=== PATIENT | female | born 1975 | race African-American/Black ===

== ENCOUNTER 2020-04-11 12:43 | Inpatient (IN) | payer MEDICAID ==
[~2020-04-11] VITALS: Ht 160 cm; Wt 63.8 kg
[~2020-04-11 12:43] MED LIST: AMLO-250 PO; CITA20TA12 PO; CLN.1T PO; FERR-84 PO; LEVO1TAB68 PO; LISI40TA9 PO; OMEP40CA27 PO; OMG1KC PO; ONDA8TAB9 PO; SUCR1TAB36 PO
[2020-04-11] MEDS ORDERED: LABETALOL HCL 20 MG/4 ML VIAL ONE (13:05)
--- NOTE | 2020-04-11 13:09 | ED General ---
General Stated Complaint: L ARM NUMBNESS Source of Information: Patient History of Present Illness Date Seen by Provider: Apr 11, 2020 Time Seen by Provider: 12:55 Initial Comments PT ARRIVES VIA POV FROM HOME C/O LEFT ARM NUMBNESS SINCE 0900 THIS AM STATES IT IS BETTER, BUT "FEELS A LITTLE FUNNY-LIKE YOU KNOW SOMETHING'S NOT RIGHT" NO PAIN IN ARM AND NO PROBLEMS USING ARM NO CHEST PAIN NO PALPITATIONS NO SHORTNESS OF BREATH NO SWEATS NO HEADACHE NO VISION CHANGES WAS SLIGHTLY DIZZY EARLIER, NOT NOW NO FEVER OR RECENT ILLNESS NO HISTORY OF SIMILAR PT LATER STATES THAT SHE DID TAKE 2 ( TWO) 325 MG ASPIRIN TODAY PT HAS HISTORY OF HTN, QUIT TAKING MEDIATIONS YEARS AGO, AND HAS NOT SEEN A DR IN YEARS--STATES SHE LOST HER INSURANCE PT SMOKES 1/2 PPD, AND OCCASIONALLY DRINKS ALCOHOL. --HAD 1 BEER LAST NIGHT LMP: 3 MONTHS AGO, PERIODS ARE SPORADIC.NO CONTROL. NO KNOWN SICK CONTACTS OR EXPOSURE TO COVID-19. NO COVID-19 SYMPTOMS PCP: HAS BEEN TO [facility] AND DR. SERRA. STATES SHE WILL PROBABLY START BACK AT [facility] Allergies and Home Medications Allergies Coded Allergies: lisinopril (Verified Allergy, Unknown, Angioedema, 04/11/20) Home Medications Amlodipine Besylate 5 Mg Tablet, 10 MG PO DAILY Prescribed by: SHAKIRA MISHRA on 06/24/15913 Citalopram Hydrobromide 20 Mg Tablet, 20 MG PO DAILY, (Reported) Clonidine HCl 0.1 Mg Tablet, 0.1 MG PO BID Prescribed by: SHAKIRA MISHRA on 06/24/15913 Ferrous Sulfate 325 Mg Tablet, 325 MG PO HS, (Reported) Levonorgestrel-Ethin Estradiol 1 Each Tablet, 1 TAB PO DAILY, (Reported) Lisinopril 40 Mg Tablet, 40 MG PO DAILY, (Reported) [place] 3 Polyunsat Fatty Acids 1,000 Mg Cap, 1,000 MG PO HS, (Reported) Omeprazole 40 Mg Capsule.dr, 40 MG PO DAILY Prescribed by: SHAKIRA MISHRA on 06/24/15916 Ondansetron 8 Mg Tab.rapdis, 8 MG PO Q6H PRN for NAUSEA Prescribed by: SHAKIRA MISHRA on 06/24/15916 Sucralfate 1 Gm Tablet, 1 GM PO ACHS Prescribed by: SHAKIRA MISHRA on 06/24/15 0917 Patient Home Medication List Home Medication List Reviewed: Yes Review of Systems Review of Systems Constitutional: see HPI; No chills, No diaphoresis; dizziness; No fever, No malaise, No weakness EENTM: no symptoms reported; No blurred vision, No double vision, No eye pain Respiratory: no symptoms reported; No cough, No short of breath, No wheezing Cardiovascular: no symptoms reported; No chest pain, No edema, No palpitations, No syncope, No vascular heart diseas Gastrointestinal: no symptoms reported; No abdominal pain, No diarrhea, No na usea, No vomiting Genitourinary: no symptoms reported Musculoskeletal: no symptoms reported Skin: no symptoms reported Psychiatric/Neurological: See HPI; Denies Headache; Numbness, Paresthesia; Denies Seizure, Denies Tingling, Denies Tremors, Denies Weakness Hematologic/Lymphatic: No Symptoms Reported Immunological/Allergic: no symptoms reported Past Gvwrhvf-Wejjkm-Yjadsa Hx Past Med/Social Hx: Reviewed and Corrections made Patient Social History Alcohol Use: Occasionally Uses Drug of Choice: DENIES Smoking Status: Current Everyday Smoker (1/2 PPD) Type Used: Cigarettes Past Medical History Surgeries: Yes ( X 4) Section Respiratory: No Currently Using CPAP: No Cardiac: Yes (QUIT TAKING MEDICATIONS YEARS AGO, PER PT 04/11/20) Hypertension Neurological: No Reproductive Disorders: No (PERIMENOPAUSAL) Female Reproductive Disorders: Denies Genitourinary: No Gastrointestinal: No Musculoskeletal: No Endocrine: No HEENT: No Cancer: No Psychosocial: Yes (DOES NOT TAKE ANY MEDICATIONS) Anxiety, Depression Integumentary: No Blood Disorders: No Physical Exam Vital Signs Vital Signs - First Documented 04/11/20 12:48 Temp 35.2 Pulse 89 Resp 20 B/P (MAP) 244/144 (177) Pulse Ox 100 O2 Delivery Room Air Capillary Refill : Height, Weight, BMI Height: 5'3.00" Weight: 142lbs. 9.0oz. 64.222821bm; 25.2 BMI Method:Stated General Appearance: No Apparent Distress, WD/WN HEENT: PERRL/EOMI, TMs Normal, Normal ENT Inspection, Pharynx Normal Neck: Full Range of Motion, Normal Inspection, Non Tender, Supple; No Carotid Bruit, No JVD Respiratory: Normal Breath Sounds, No Accessory Muscle Use, No Respiratory Distress Cardiovascular: Regular Rate, Rhythm, No Edema, No JVD, No Murmur, Normal Peripheral Pulses Gastrointestinal: No Organomegaly, Non Tender, Soft Back: No CVA Tenderness Extremity: Normal Capillary Refill, Normal Inspection, Normal Range of Motion, Non Tender, No Calf Tenderness, No Pedal Edema Neurologic/Psychiatric: Alert, Oriented x3, No Motor/Sensory Deficits, Normal Mood/Affect, 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 Norm as Tested; No Aphasia, No EOM Palsy, No Facial Droop, No Motor Weakness, No Sensory Deficit Skin: Normal Color (PT IS BLACK), Warm/Dry Progress/Results/Core Measures Suspected Sepsis SIRS Temperature: Pulse: Respiratory Rate: Laboratory Tests 04/11/20 12:57: White Blood Count 8.7 Blood Pressure / Mean: Laboratory Tests 04/11/20 12:57: Creatinine 1.37H, INR Comment 1.1, Platelet Count 320, Total Bilirubin 0.3 Results/Orders Lab Results Laboratory Tests Test 04/11/20 12:57 04/11/20 14:42 Range/Units White Blood Count 8.7 4.3-11.0 10^3/uL Red Blood Count 4.60 3.80-5.11 10^6/uL Hemoglobin 13.1 11.5-16.0 g/dL Hematocrit 40 35-52 % Mean Corpuscular Volume 87 80-99 fL Mean Corpuscular Hemoglobin 29 25-34 pg Mean Corpuscular Hemoglobin Concent 33 32-36 g/dL Red Cell Distribution Width 13.5 10.0-14.5 % Platelet Count 320 130-400 10^3/uL Mean Platelet Volume 10.8 9.0-12.2 fL Immature Granulocyte % (Auto) 0 % Neutrophils (%) (Auto) 72 42-75 % Lymphocytes (%) (Auto) 23 12-44 % Monocytes (%) (Auto) 5 0-12 % Eosinophils (%) (Auto) 0 0-10 % Basophils (%) (Auto) 0 0-10 % Neutrophils # (Auto) 6.3 1.8-7.8 10^3/uL Lymphocytes # (Auto) 2.0 1.0-4.0 10^3/uL Monocytes # (Auto) 0.4 0.0-1.0 10^3/uL Eosinophils # (Auto) 0.0 0.0-0.3 10^3/uL Basophils # (Auto) 0.0 0.0-0.1 10^3/uL Immature Granulocyte # (Auto) 0.0 0.0-0.1 10^3/uL Prothrombin Time 15.0 H 12.2-14.7 SEC INR Comment 1.1 0.8-1.4 Activated Partial Thromboplast Time 28 24-35 SEC D-Dimer 0.49 0.00-0.49 UG/ML Sodium Level 137 135-145 MMOL/L Potassium Level 3.6 3.6-5.0 MMOL/L Chloride Level 103 98-107 MMOL/L Carbon Dioxide Level 22 21-32 MMOL/L Anion Gap 12 5-14 MMOL/L Blood Urea Nitrogen 12 7-18 MG/DL Creatinine 1.37 H 0.60-1.30 MG/DL Estimat Glomerular Filtration Rate 51 BUN/Creatinine Ratio 9 Glucose Level 96 70-105 MG/DL Calcium Level 9.7 8.5-10.1 MG/DL Corrected Calcium 9.5 8.5-10.1 MG/DL Magnesium Level 2.0 1.6-2.4 MG/DL Total Bilirubin 0.3 0.1-1.0 MG/DL Aspartate Amino Transf (AST/SGOT) 19 5-34 U/L Alanine Aminotransferase (ALT/SGPT) 14 0-55 U/L Alkaline Phosphatase 90 40-136 U/L Total Creatine Kinase 115 29-168 U/L Creatine Kinase MB 1.2 <6.6 NG/ML Myoglobin 43.9 10.0-92.0 NG/ML Troponin I 0.032 H <0.028 NG/ML B-Type Natriuretic Peptide 179.6 H <100.0 PG/ML Total Protein 8.6 H 6.4-8.2 GM/DL Albumin 4.3 3.2-4.5 GM/DL TSH [place] Testing 1.50 0.35-4.94 UIU/ML Serum Test, Qualitative NEGATIVE NEGATIVE Serum Alcohol < 10 <10 MG/DL Urine Color YELLOW Urine Clarity CLEAR Urine pH 6.0 5-9 Urine Specific [place] <=1.005 1.016-1.022 Urine Protein NEGATIVE NEGATIVE Urine Glucose (UA) NEGATIVE NEGATIVE Urine Ketones NEGATIVE NEGATIVE Urine Nitrite NEGATIVE NEGATIVE Urine Bilirubin NEGATIVE NEGATIVE Urine Urobilinogen 0.2 < = 1.0 MG/DL Urine Leukocyte Esterase NEGATIVE NEGATIVE Urine RBC (Auto) TRACE-I NEGATIVE Urine RBC RARE /HPF Urine WBC RARE /HPF Urine Squamous Epithelial Cells 5-10 /HPF Urine Crystals NONE /LPF Urine Bacteria FEW H /HPF Urine Casts NONE /LPF Urine Mucus NEGATIVE /LPF Urine Culture Indicated NO Urine Opiates Screen NEGATIVE NEGATIVE Urine Oxycodone Screen NEGATIVE NEGATIVE Urine Methadone Screen NEGATIVE NEGATIVE Urine Propoxyphene Screen NEGATIVE NEGATIVE Urine Barbiturates Screen NEGATIVE NEGATIVE Ur Tricyclic Antidepressants Screen NEGATIVE NEGATIVE Urine Phencyclidine Screen NEGATIVE NEGATIVE Urine Amphetamines Screen NEGATIVE NEGATIVE Urine Methamphetamines Screen NEGATIVE NEGATIVE Urine Benzodiazepines Screen NEGATIVE NEGATIVE Urine Cocaine Screen NEGATIVE NEGATIVE Urine Cannabinoids Screen NEGATIVE NEGATIVE My Orders Orders - JERRY GARVIN DO Ed Iv/Invasive Line Start (04/11/20 13:01) Ekg Tracing (04/11/20 13:01) Monitor-Rhythm Ecg Trace Only (04/11/20 13:01) Alcohol (04/11/20 13:01) BNP (04/11/20 13:01) Cbc With Automated Diff (04/11/20 13:01) Comprehensive Metabolic Panel (04/11/20 13:01) Creatine Kinase (04/11/20 13:01) Creatine Kinase Mb (04/11/20 13:01) Drug Screen Stat (Urine) (04/11/20 13:01) Magnesium (04/11/20 13:01) Protime With Inr (04/11/20 13:01) Partial Thromboplastin Time (04/11/20 13:01) Thyroid Analyzer (04/11/20 13:01) Ua Culture If Indicated (04/11/20 13:01) Myoglobin Serum (04/11/20 13:01) Troponin I (04/11/20 13:01) Fibrin Degradation Products (04/11/20 13:01) Chest 1 View, Ap/Pa Only (04/11/20 13:01) Ed Iv/Invasive Line Start (04/11/20 13:01) Ed Iv/Invasive Line Start (04/11/20 13:01) Vital Signs Stroke Patient Q15M (04/11/20 13:01) Ct Head Wo-R/O Stroke (04/11/20 13:01) Intake & Output 06,14,22 (04/11/20 13:01) Dysphagia Screening Tool (04/11/20 13:01) Hcg,Qualitative Serum (04/11/20 13:03) Labetalol Injection (Normodyne Injection (04/11/20 13:15) Labetalol Injection (Normodyne Injection (04/11/20 13:05) Ct Angio Head/Neck (04/11/20 13:50) Iohexol Injection (Omnipaque 350 Mg/Ml 1 (04/11/20 14:00) Received Contrast (Hold Metformin- Contr (04/11/20 14:00) Sodium Chloride Flush (Catheter Flush Sy (04/11/20 14:00) Ns (Ivpb) (Sodium Chloride 0.9% Ivpb Bag (04/11/20 14:00) Metoprolol Succinate (Xl) Tab (Toprol Xl (04/11/20 14:00) Hydralazine Injection (Apresoline Inject (04/11/20 13:49) Ns (Ivpb) (Sodium C... W/Nicardipine Iv (04/11/20 16:15) Medications Given in ED Current Medications Medications Dose Ordered Sig/Karishma Route Start Time Stop Time Status Last Admin Dose Admin Iohexol 75 ml ONCE ONCE IV 04/11/20 14:00 04/11/20 14:01 DC 04/11/20 14:06 75 ML Labetalol HCl 20 mg ONCE ONCE IV 04/11/20 13:15 04/11/20 13:16 DC 04/11/20 13:11 20 MG Metoprolol Succinate 200 mg ONCE ONCE PO 04/11/20 14:00 04/11/20 14:01 DC 04/11/20 14:28 200 MG Sodium Chloride 10 ml NEEDED PRN IV 04/11/20 14:00 04/11/20 14:06 10 ML Sodium Chloride 100 ml ONCE ONCE IV 04/11/20 14:00 04/11/20 14:01 DC 04/11/20 14:06 80 ML Vital Signs/I&O 04/11/20 04/11/20 12:48 17:20 Temp 35.2 Pulse 89 72 Resp 20 24 B/P (MAP) 244/144 (177) 211/138 Pulse Ox 100 100 O2 Delivery Room Air Room Air Capillary Refill : Progress Note : Progress Note GIVEN LABETALOL 20 MG IV FOR ELEVATED BLOOD PRESSURE--NO IMPROVEMENT GAVE TOPROL XL 200 MG --NO IMPROVEMENT, AND BP UP TO 251/158. NICARDIPINE DRIP INITIATED. PT HAD NO COMPLAINTS DURING ER STAY ECG Initial ECG Impression Date: Apr 11, 2020 Initial ECG Impression Time: 12:57 Initial ECG Rate: 85 Initial ECG Rhythm: Normal Sinus (LVH) Diagnostic Imaging Comments CXR-- CT HEAD--PER RADIOLOGIST REPORT AT 1345 FINDINGS: No hyperdense hemorrhage or space-occupying mass. No hydrocephalus or midline shift. The basilar cisterns are normal. Frances-white matter differentiation is well preserved. The mastoid air cells are clear. Paranasal sinuses are normal. No focal osseous abnormality of the calvarium. IMPRESSION: 1. No acute intracranial process. CT ANGIOGRAM HEAD/NECK--PER RADIOLOGIST VIA PHONE AT 1429 AND VIA FAX AT 1440 radiation dose reduction. INDICATION: Left arm weakness. FINDINGS: Branching pattern of the great vessels is unremarkable. The cervical vertebral arteries are unremarkable. There is mild non stenosing calcified plaque at the left carotid bulb and bifurcation extending into the proximal ICA without significant luminal stenosis. No intimal injury, dissection, occlusion, or hemodynamically significant degree of stenosis. No cervical mass or fluid collection. No acute bony abnormality. CT ANGIO HEAD: The intradural vertebral arteries are patent. 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 There is fullness at the level of the patient's basilar tip without intraluminal or mural thrombus, suspect for developing small aneurysm. It measures an AP thickness of 2.9 mm and in the coronal reconstructions a cephalocaudal height of 3.2 mm. The bilateral SALES RE[employer] segments are unremarkable. The intracranial ICA is patent and nonfocal. The A1 segments and the anterior cerebral arteries are unremarkable. There is an aneurysm of the left proximal M2 segment in axial plane measuring 3.3 cm extending left lateral and in the coronal plane measuring a length of 3.6 cm. No other intracranial aneurysm is found. There is no large vessel occlusion or intraluminal thrombus. No hemodynamically significant degree of stenosis. IMPRESSION: 1. 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 Mild cervical atherosclerosis without hemodynamically significant stenosis. 2. No large vessel occlusion or luminal thrombus. Results discussed with the ER physician. Reviewed: Reviewed by Me, Discussed w/Radiologist Departure Communication (Admissions) 1347--SPOKE WITH DR. GOETZ, HE ADVISES TO PROCEED WITH NEURO WORK UP, AND ORDERS NOTED FOR BLOOD PRESSURE MEDICATIONS. HE WILL SEE PT IN CONSULT. ADMIT TO MEDICINE SERVICE. 1440--CALLED [facility]. WILL CLOUD CT IMAGES AND WILL HAVE NEUROLOGY REVIEW AND WILL CALL BACK 1515--[facility] CALLED, ONLY RECEIVED PART OF IMAGES. CALLED CT AND THEY WILL RE-SEND IMAGES. 1556--[facility] CALLED BACK. THEY HAVE REVIEWED IMAGES, AND ADVISE NO EMERGENT INTERVENTION NEEDED, BUT WILL FOLLOW UP IN OFFICE TO MONITOR. DR. TERESE NGUYEN [phone]. 0479--SPOKE WITH DR. LEVY, HOSPITALIST, ACCEPTS PT FOR ADMIT Impression Primary Impression: Hypertensive emergency Additional Impressions: Elevated troponin Paresthesia of left arm SMALL CEREBRAL ANEURYSM Renal insufficiency Non-compliance Disposition: ADMITTED INPATIENT Condition: Stable Admissions Decision to Admit Reason: Admit from ER (General) Decision to Admit/Date: Apr 11, 2020 Time/Decision to Admit Time: 16:05 Departure-Patient Inst. Referrals: NO,LOCAL PHYSICIAN (PCP/Family) Primary Care Physician JERRY GARVIN DO Apr 11, 2020 13:09
[2020-04-11 13:13] LABS: BASOPHILS % (AUTO) 0 % (0-10); EOSINOPHILS % (AUTO) 0 % (0-10); HEMATOCRIT 40 % (35-52); HEMOGLOBIN 13.1 g/dL (11.5-16.0); LYMPHOCYTES % (AUTO) 23 % (12-44); MEAN CORPUSCULAR HEMOGLOBIN 29 pg (25-34); MEAN CORPUSCULAR HGB CONC 33 g/dL (32-36); MEAN CORPUSCULAR VOLUME 87 fL (80-99); MEAN PLATELET VOLUME 10.8 fL (9.0-12.2); MONOCYTES # (AUTO) 0.4 10^3/uL (0.0-1.0); MONOCYTES % (AUTO) 5 % (0-12); NEUTROPHILS # (AUTO) 6.3 10^3/uL (1.8-7.8); NEUTROPHILS % (AUTO) 72 % (42-75); PLATELET COUNT 320 10^3/uL (130-400); WHITE BLOOD COUNT 8.7 10^3/uL (4.3-11.0)
[2020-04-11] MEDS ORDERED: LABETALOL HCL 20 MG/4 ML VIAL IV ONE (13:15)
[2020-04-11 13:23] LABS: FIBRIN DEGRADATION PRODUCTS 0.49 UG/ML (0.00-0.49); INR 1.1 (0.8-1.4)
[2020-04-11 13:25] LABS: ALBUMIN 4.3 GM/DL (3.2-4.5); CHLORIDE 103 MMOL/L (98-107); POTASSIUM 3.6 MMOL/L (3.6-5.0); SODIUM 137 MMOL/L (135-145)
[2020-04-11 13:27] LABS: CALCIUM 9.7 MG/DL (8.5-10.1)
[2020-04-11 13:28] LABS: GLUCOSE 96 MG/DL (70-105); TOTAL PROTEIN 8.6 GM/DL (6.4-8.2)
[2020-04-11 13:29] LABS: CARBON DIOXIDE 22 MMOL/L (21-32)
[2020-04-11 13:30] LABS: BILIRUBIN,TOTAL 0.3 MG/DL (0.1-1.0)
[2020-04-11 13:31] LABS: ALKALINE PHOSPHATASE 90 U/L (40-136); CREATININE SERUM 1.37 MG/DL (0.60-1.30); GFR ESTIMATED 51
[2020-04-11 13:32] LABS: BUN/CREATININE RATIO 9
[2020-04-11 13:34] LABS: ALANINE AMINOTRANSFERASE 14 U/L (0-55)
[2020-04-11 13:35] LABS: CREATINE KINASE 115 U/L (29-168)
--- NOTE | 2020-04-11 13:41 | Diagnostic Imaging Report ---
PROCEDURE: CT head wo r/o stroke. TECHNIQUE: Multiple contiguous axial images were obtained through the brain without the use of intravenous contrast. Auto Exposure Controls were utilized during the CT exam to meet ALARA standards for radiation dose reduction. INDICATION: Left arm weakness. COMPARISON: None available. FINDINGS: No hyperdense hemorrhage or space-occupying mass. No hydrocephalus or midline shift. The basilar cisterns are normal. Frances-white matter differentiation is well preserved. The mastoid air cells are clear. Paranasal sinuses are normal. No focal osseous abnormality of the calvarium. IMPRESSION: 1. No acute intracranial process. Dictated by: Dictated on workstation # [id number]
[2020-04-11 13:43] LABS: CREATINE KINASE MB 1.2 NG/ML (<6.6)
--- NOTE | 2020-04-11 13:47 | Diagnostic Imaging Report ---
INDICATION: Left arm paresthesia Portable chest 1:34 PM Heart size and pulmonary vascularity are normal. Lungs are clear. There are no effusions or pneumothoraces. IMPRESSION: Negative chest Dictated by: Dictated on workstation # [id number]
[2020-04-11] MEDS ORDERED: hydrALAZINE (APESOLINE) 20 MG/ML VIAL ONE (13:49)
[2020-04-11] MEDS ORDERED: CATHETER FLUSH 10 ML SYR IV PRN (14:00)
[2020-04-11] MEDS ORDERED: IOHEXOL 350 MG/ML 100 ML (OMNIPAQUE 350) VIAL IV ONE (14:00)
[2020-04-11] MEDS ORDERED: meTOprolol SUCCINATE 100 MG (TOPROL XL) TAB PO ONE (14:00)
[2020-04-11] MEDS ORDERED: HOLD METFORMIN - RECEIVED CONTRAST 20 ML VIAL IV SCH (14:00)
[2020-04-11] MEDS ORDERED: NS 100 ML (IVPB) BAG IV ONE (14:00)
--- NOTE | 2020-04-11 14:08 | Consultation-Cardiology ---
HPI-Cardiology Cardiology Consultation: Date of Consultation 04/11/20 Date of Admission Attending Physician Admitting Physician Briana,Local Physician Consulting Physician Mike Marquis MD HPI: Chief Complaint: Uncontrolled hypertension AIK-Ffqped-Zilnaf Hx Patient Social History Smoking Status: Current Everyday Smoker (1/2 PPD) Immunizations Up To Date Tetanus Booster (TDap): Unknown Past Medical History PMH As described under Assessment. Allergies and Home Medications Allergies Coded Allergies: lisinopril (Verified Allergy, Unknown, Angioedema, 04/11/20) Home Medications Amlodipine Besylate 5 Mg Tablet, 10 MG PO DAILY Prescribed by: SHAKIRA MISHRA on 06/24/15913 Citalopram Hydrobromide 20 Mg Tablet, 20 MG PO DAILY, (Reported) Clonidine HCl 0.1 Mg Tablet, 0.1 MG PO BID Prescribed by: SHAKIRA MISHRA on 06/24/15913 Ferrous Sulfate 325 Mg Tablet, 325 MG PO HS, (Reported) Levonorgestrel-Ethin Estradiol 1 Each Tablet, 1 TAB PO DAILY, (Reported) Lisinopril 40 Mg Tablet, 40 MG PO DAILY, (Reported) [place] 3 Polyunsat Fatty Acids 1,000 Mg Cap, 1,000 MG PO HS, (Reported) Omeprazole 40 Mg Capsule.dr, 40 MG PO DAILY Prescribed by: SHAKIRA MISHRA on 06/24/15916 Ondansetron 8 Mg Tab.rapdis, 8 MG PO Q6H PRN for NAUSEA Prescribed by: SHAKIRA MISHRA on 06/24/15916 Sucralfate 1 Gm Tablet, 1 GM PO ACHS Prescribed by: SHAKIRA MISHRA on 06/24/15916 Physical Exam-Cardiology Physical Exam Vital Signs/I&O 04/11/20 12:48 Temp 35.2 Pulse 89 Resp 20 B/P (MAP) 244/144 (177) Pulse Ox 100 O2 Delivery Room Air Capillary Refill : Less Than 3 Seconds Data Review Labs Laboratory Tests 04/11/20 12:57: White Blood Count 8.7, Red Blood Count 4.60, Hemoglobin 13.1, Hematocrit 40, Mean Corpuscular Volume 87, Mean Corpuscular Hemoglobin 29, Mean Corpuscular Hemoglobin Concent 33, Red Cell Distribution Width 13.5, Platelet Count 320, Mean Platelet Volume 10.8, Immature Granulocyte % (Auto) 0, Neutrophils (%) (Auto) 72, Lymphocytes (%) (Auto) 23, Monocytes (%) (Auto) 5, Eosinophils (%) (Auto) 0, Basophils (%) (Auto) 0, Neutrophils # (Auto) 6.3, Lymphocytes # (Auto) 2.0, Monocytes # (Auto) 0.4, Eosinophils # (Auto) 0.0, Basophils # (Auto) 0.0, Immature Granulocyte # (Auto) 0.0, Prothrombin Time 15.0H, INR Comment 1.1, Activated Partial Thromboplast Time 28, D-Dimer 0.49, Sodium Level 137, Potassium Level 3.6, Chloride Level 103, Carbon Dioxide Level 22, Anion Gap 12, Blood Urea Nitrogen 12, Creatinine 1.37H, Estimat Glomerular Filtration Rate 51, BUN/Creatinine Ratio 9, Glucose Level 96, Calcium Level 9.7, Corrected Calcium 9.5, Magnesium Level 2.0, Total Bilirubin 0.3, Aspartate Amino Transf (AST/SGOT) 19, Alanine Aminotransferase (ALT/SGPT) 14, Alkaline Phosphatase 90, Total Creatine Kinase 115, Creatine Kinase MB 1.2, Myoglobin 43.9, Troponin I 0.032H, B-Type Natriuretic Peptide 179.6H, Total Protein 8.6H, Albumin 4.3, TSH [place] Testing 1.50, Serum Test, Qualitative NEGATIVE, Serum Alcohol < 10 04/11/20 14:42: Urine Color YELLOW, Urine Clarity CLEAR, Urine pH 6.0, Urine Specific [place] <=1.005, Urine Protein NEGATIVE, Urine Glucose (UA) NEGATIVE, Urine Ketones NEGATIVE, Urine Nitrite NEGATIVE, Urine Bilirubin NEGATIVE, Urine Urobilinogen 0.2, Urine Leukocyte Esterase NEGATIVE, Urine RBC (Auto) TRACE-I, Urine RBC RARE, Urine WBC RARE, Urine Squamous Epithelial Cells 5-10, Urine Crystals NONE, Urine Bacteria FEWH, Urine Casts NONE, Urine Mucus NEGATIVE, Urine Culture Indicated NO, Urine Opiates Screen NEGATIVE, Urine Oxycodone Screen NEGATIVE, Urine Methadone Screen NEGATIVE, Urine Propoxyphene Screen NEGATIVE, Urine Barbiturates Screen NEGATIVE, Ur Tricyclic Antidepressants Screen NEGATIVE, Urine Phencyclidine Screen NEGATIVE, Urine Amphetamines Screen NEGATIVE, Urine Methamphetamines Screen NEGATIVE, Urine Benzodiazepines Screen NEGATIVE, Urine Cocaine Screen NEGATIVE, Urine Cannabinoids Screen NEGATIVE Radiology NAME: MIHAI PETER MED REC#: [id number] PT STATUS: REG ER : 1975 PHYSICIAN: JERRY GARVIN DO ADMIT DATE: 04/11/20/ER Draft Date of Exam:04/11/20 CHEST 1 VIEW, AP/PA ONLY INDICATION: Left arm paresthesia Portable chest 1:34 PM Heart size and pulmonary vascularity are normal. Lungs are clear. There are no effusions or pneumothoraces. IMPRESSION: Negative chest Dictated on workstation # [id number] Dict: 04/11/20 1346 Trans: 04/11/20 1347 CVB [id number] Interpreted by: LETICIA ESPARZA MD Electronically signed by: NAME: MIHIA PETER [facility] REC#: [id number] PT STATUS: REG ER : 1975 PHYSICIAN: JERRY GARVIN DO ADMIT DATE: 04/11/20/ER Signed Date of Exam:04/11/20 CT HEAD WO-R/O STROKE PROCEDURE: CT head wo r/o stroke. TECHNIQUE: Multiple contiguous axial images were obtained through the brain without the use of intravenous contrast. Auto Exposure Controls were utilized during the CT exam to meet ALARA standards for radiation dose reduction. INDICATION: Left arm weakness. COMPARISON: None available. FINDINGS: No hyperdense hemorrhage or space-occupying mass. No hydrocephalus or midline shift. The basilar cisterns are normal. Frances-white matter differentiation is well preserved. The mastoid air cells are clear. Paranasal sinuses are normal. No focal osseous abnormality of the calvarium. IMPRESSION: 1. No acute intracranial process. Dictated by: Dictated on workstation # [id number] Dict: 04/11/20 1338 Trans: 04/11/20 1339 [facility] [id number] Interpreted by: FLORENTIN ROMERO MD Electronically signed by: FLORENTIN ROMERO MD 04/11/20 1339 A/P-Cardiology Assessment/Admission Diagnosis Left arm discomfort of undetermined etiology Uncontrolled hypertension Minimally elevated troponin likely Type 2 ME secondary to uncontrolled hypertension Echocardiogram of [address] Moreira: Severe left ventricular hypertrophy noted diffusely with normal systolic function. Estimated ejection fraction 60%. Diastolic dysfunction is suggested by Doppler. Mild mitral regurgitation. Mild tricuspid regurgitation. Estimated pulmonary artery pressure of 30 mmHg. FAUSTO RICHARDSON Apr 11, 2020 14:08
--- NOTE | 2020-04-11 14:37 | Diagnostic Imaging Report ---
PROCEDURE: CT angiography of the head and CT angiography of the neck with and without contrast. TECHNIQUE: Contiguous noncontrast images were obtained from the skull base through the vertex. After intravenous contrast administration, helical CT angiography of the neck was performed. Source data was reformatted into 3D MIP projections. Delayed post contrast acquisition was also obtained. Auto Exposure Controls were utilized during the CT exam to meet ALARA standards for radiation dose reduction. INDICATION: Left arm weakness. FINDINGS: Branching pattern of the great vessels is unremarkable. The cervical vertebral arteries are unremarkable. There is mild non stenosing calcified plaque at the left carotid bulb and bifurcation extending into the proximal ICA without significant luminal stenosis. No intimal injury, dissection, occlusion, or hemodynamically significant degree of stenosis. No cervical mass or fluid collection. No acute bony abnormality. CT ANGIO HEAD: The intradural vertebral arteries are patent. 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 There is fullness at the level of the patient's basilar tip without intraluminal or mural thrombus, suspect for developing small aneurysm. It measures an AP thickness of 2.9 mm and in the coronal reconstructions a cephalocaudal height of 3.2 mm. The bilateral ALLOPATHIC DOCTOR segments are unremarkable. The intracranial ICA is patent and nonfocal. The A1 segments and the anterior cerebral arteries are unremarkable. There is an aneurysm of the left proximal M2 segment in axial plane measuring 3.3 cm extending left lateral and in the coronal plane measuring a length of 3.6 cm. No other intracranial aneurysm is found. There is no large vessel occlusion or intraluminal thrombus. No hemodynamically significant degree of stenosis. IMPRESSION: 1. 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 Mild cervical atherosclerosis without hemodynamically significant stenosis. 2. No large vessel occlusion or luminal thrombus. Results discussed with the ER physician. Dictated by: Dictated on workstation # [id number]
[2020-04-11 14:58] LABS: BILIRUBIN,URINE NEGATIVE (NEGATIVE); CLARITY,URINE CLEAR; COLOR,URINE YELLOW; GLUCOSE, URINE (UA) NEGATIVE (NEGATIVE); KETONES,URINE NEGATIVE (NEGATIVE); LEUKOCYTE ESTERASE ,URINE NEGATIVE (NEGATIVE); NITRITE,URINE NEGATIVE (NEGATIVE); PROTEIN,URINE NEGATIVE (NEGATIVE)
[2020-04-11 15:02] LABS: AMPHETAMINE SCREEN, URINE NEGATIVE (NEGATIVE); BARBITURATE SCREEN URINE NEGATIVE (NEGATIVE); BENZODIAZEPINES SCREEN URINE NEGATIVE (NEGATIVE); CANNABINOID SCREEN, URINE NEGATIVE (NEGATIVE); COCAINE SCREEN URINE NEGATIVE (NEGATIVE); METHADONE STAT NEGATIVE (NEGATIVE); METHAMPHETAMINE SCREEN URINE S NEGATIVE (NEGATIVE); OPIATE SCREEN URINE NEGATIVE (NEGATIVE); OXYCODONE STAT NEGATIVE (NEGATIVE); PROPOXYPHENE STAT NEGATIVE (NEGATIVE); TRICYCLIC ANTIDEPRESSANTS SCRE NEGATIVE (NEGATIVE)
[2020-04-11 15:07] LABS: BACTERIA,URINE FEW /HPF; RBC,URINE RARE /HPF; WBC,URINE RARE /HPF
[2020-04-11] MEDS ORDERED: niCARdipine IV 50 MG in NS (IVPB) 230 ML IV SCH (16:15)
--- NOTE | 2020-04-11 17:59 | Consultation-Cardiology ---
HPI-Cardiology Cardiology Consultation: Date of Consultation 04/11/20 Time Seen by a Provider: 17:40 Date of Admission Attending Physician Holli Hollins MD Admitting Physician No,Local Physician Consulting Physician SEVERINO GOETZ MD, MA, FACP, FACC, FSCAI, CCDS Physician requesting consult: Dr Hollins (attending); Dr Gleason (ER physician) HPI: Chief Complaint: CC: Transient L arm weakness HPI 45 yo woman with known, severe hypertension who has not been taking her meds. She has been admitted to Dr Hollins with transient L arm weakness. She states that has resolved at the time of my exam. She does not report any cp or palp or syncope or shortness of breath or swelling. Review of Systems-Cardiology Review of Systems Constitutional: malaise, tiredness; No weight loss, No weight gain Eyes: No vision change Ears/Nose/Throat: No ear discharge, No nasal drainage, No recent hearing loss Respiratory: As described under HPI Cardiovascular: As described under HPI Gastrointestinal: No diarrhea, No nausea, No rectal bleeding Genitourinary: No dysuria, No hematuria, No urine frequency changes Musculoskeletal: No back pain, No joint pain Skin: No rash, No ulcerations Psychiatric/Neurological: As described under HPI Hematologic: No bleeding abnormalities AMI-Shfnwm-Qcjiyp Hx Patient Social History Smoking Status: Current Everyday Smoker (1/2 PPD) Immunizations Up To Date Tetanus Booster (TDap): Unknown Past Medical History PMH As described under Assessment. Family Medical History Family Medical History: Mother had severe hypertension and from its complications, according to the patient Patient does not report fam h/o early CAD or SCD Allergies and Home Medications Allergies Coded Allergies: lisinopril (Verified Allergy, Unknown, Angioedema, 04/11/20) Home Medications Amlodipine Besylate 5 Mg Tablet, 10 MG PO DAILY Prescribed by: SHAKIRA MISHRA on 06/24/15913 Citalopram Hydrobromide 20 Mg Tablet, 20 MG PO DAILY, (Reported) Clonidine HCl 0.1 Mg Tablet, 0.1 MG PO BID Prescribed by: SHAKIRA MISHRA on 06/24/15913 Ferrous Sulfate 325 Mg Tablet, 325 MG PO HS, (Reported) Levonorgestrel-Ethin Estradiol 1 Each Tablet, 1 TAB PO DAILY, (Reported) Lisinopril 40 Mg Tablet, 40 MG PO DAILY, (Reported) [place] 3 Polyunsat Fatty Acids 1,000 Mg Cap, 1,000 MG PO HS, (Reported) Omeprazole 40 Mg Capsule.dr, 40 MG PO DAILY Prescribed by: SHAKIRA MISHRA on 06/24/15916 Ondansetron 8 Mg Tab.rapdis, 8 MG PO Q6H PRN for NAUSEA Prescribed by: SHAKIRA MISHRA on 06/24/15916 Sucralfate 1 Gm Tablet, 1 GM PO ACHS Prescribed by: SHAKIRA MISHRA on 06/24/15916 Patient Home Medication List Home Medication List Reviewed: Yes Physical Exam-Cardiology Physical Exam Vital Signs/I&O 04/11/20 04/11/20 12:48 17:20 Temp 35.2 Pulse 89 72 Resp 20 24 B/P (MAP) 244/144 (177) 211/138 Pulse Ox 100 100 O2 Delivery Room Air Room Air Capillary Refill : Less Than 3 Seconds Constitutional: AAO x 3, well-developed, well-nourished HEENT: EOMI, hearing is well preserved; No xanthelasmas are seen Neck: carotid pulses are 2 + bilaterally, with good upstrokes Respiratory: No accessory muscle use; other (good, bilat air entry) Cardiovascular: regular rate-rhythm, S1 and S2 Gastrointestinal: No tender; soft; No guarding, No rebound; audible bowel sounds Extremities: No clubbing, No cyanosis, No significant edema Neurologic/Psychiatric: oriented x 3, other (moves all her limbs equally) Skin: No rash on exposed areas, No ulcerations on exposed areas Data Review Labs Laboratory Tests 04/11/20 12:57: White Blood Count 8.7, Red Blood Count 4.60, Hemoglobin 13.1, Hematocrit 40, Mean Corpuscular Volume 87, Mean Corpuscular Hemoglobin 29, Mean Corpuscular Hem oglobin Concent 33, Red Cell Distribution Width 13.5, Platelet Count 320, Mean Platelet Volume 10.8, Immature Granulocyte % (Auto) 0, Neutrophils (%) (Auto) 72, Lymphocytes (%) (Auto) 23, Monocytes (%) (Auto) 5, Eosinophils (%) (Auto) 0, Basophils (%) (Auto) 0, Neutrophils # (Auto) 6.3, Lymphocytes # (Auto) 2.0, Monocytes # (Auto) 0.4, Eosinophils # (Auto) 0.0, Basophils # (Auto) 0.0, Immature Granulocyte # (Auto) 0.0, Prothrombin Time 15.0H, INR Comment 1.1, Activated Partial Thromboplast Time 28, D-Dimer 0.49, Sodium Level 137, Potassium Level 3.6, Chloride Level 103, Carbon Dioxide Level 22, Anion Gap 12, Blood Urea Nitrogen 12, Creatinine 1.37H, Estimat Glomerular Filtration Rate 51, BUN/Creatinine Ratio 9, Glucose Level 96, Calcium Level 9.7, Corrected Calcium 9.5, Magnesium Level 2.0, Total Bilirubin 0.3, Aspartate Amino Transf (AST/SGOT) 19, Alanine Aminotransferase (ALT/SGPT) 14, Alkaline Phosphatase 90, Total Creatine Kinase 115, Creatine Kinase MB 1.2, Myoglobin 43.9, Troponin I 0.032H, B-Type Natriuretic Peptide 179.6H, Total Protein 8.6H, Albumin 4.3, TSH [place] Testing 1.50, Serum Test, Qualitative NEGATIVE, Serum Alcohol < 10 04/11/20 14:42: Urine Color YELLOW, Urine Clarity CLEAR, Urine pH 6.0, Urine Specific [place] <=1.005, Urine Protein NEGATIVE, Urine Glucose (UA) NEGATIVE, Urine Ketones NEGATIVE, Urine Nitrite NEGATIVE, Urine Bilirubin NEGATIVE, Urine Urobilinogen 0.2, Urine Leukocyte Esterase NEGATIVE, Urine RBC (Auto) TRACE-I, Urine RBC RARE, Urine WBC RARE, Urine Squamous Epithelial Cells 5-10, Urine Crystals NONE, Urine Bacteria FEWH, Urine Casts NONE, Urine Mucus NEGATIVE, Urine Culture Ind icated NO, Urine Opiates Screen NEGATIVE, Urine Oxycodone Screen NEGATIVE, Urine Methadone Screen NEGATIVE, Urine Propoxyphene Screen NEGATIVE, Urine Barbiturates Screen NEGATIVE, Ur Tricyclic Antidepressants Screen NEGATIVE, Urine Phencyclidine Screen NEGATIVE, Urine Amphetamines Screen NEGATIVE, Urine Methamphetamines Screen NEGATIVE, Urine Benzodiazepines Screen NEGATIVE, Urine Cocaine Screen NEGATIVE, Urine Cannabinoids Screen NEGATIVE Laboratory Tests 04/11/20 12:57 A/P-Cardiology Assessment/Admission Diagnosis 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 Malignant hypertension with SHANAE-1, and ECG and echo evidence of LVH - Echo on 04/11/20: Moderate, concentric LVH; LVEF 50%; Minimally elevated troponin likely Type 2 [place] due to uncontrolled hypertension, mild MR, PASP 25-30 mmHg Chronic smoker of cigarettes Discussion and Recomendations * Transfer to a tertiary care facility for eval and treatment of middle cerebral artery aneurysm resulting in intermittent neurologic deficit. I called patient's attending physician, Dr Hollins, and communicated my opinion to him * Treat hypertension. See orders * I advised pt to be compliant with her bp meds and to quit smoking immediately and completely SEVERINO GOETZ MD FACP FAC CCDS Apr 11, 2020 17:59
--- NOTE | 2020-04-11 18:16 | Consultation-Cardiology ---
HPI-Cardiology Cardiology Consultation: Date of Consultation 04/11/20 Time Seen by a Provider: 17:40 Date of Admission Attending Physician Holli Hollins MD Admitting Physician No,Local Physician Consulting Physician SEVERINO GOETZ MD, MA, FACP, FACC, [facility] [place], CCDS Physician requesting consult: Dr Hollins (attending); Dr Gleason (ER physician) HPI: Chief Complaint: CC: Transient L arm weakness HPI 45 yo woman with known, severe hypertension who has not been taking her meds. She has been admitted to Dr Hollins with transient L arm weakness. She states that has resolved at the time of my exam. She does not report any cp or palp or syncope or shortness of breath or swelling. Review of Systems-Cardiology Review of Systems Constitutional: malaise, tiredness Eyes: No vision change Ears/Nose/Throat: No ear discharge, No nasal drainage, No recent hearing loss Respiratory: As described under HPI Cardiovascular: As described under HPI Gastrointestinal: No diarrhea, No nausea, No rectal bleeding Genitourinary: No dysuria, No hematuria, No urine frequency changes Musculoskeletal: No back pain, No joint pain Skin: No rash, No ulcerations Psychiatric/Neurological: As described under HPI Hematologic: No bleeding abnormalities WDF-Tlghnm-Gnpptc Hx Patient Social History Smoking Status: Current Everyday Smoker (/ PPD) Immunizations Up To Date Tetanus Booster (TDap): Unknown Past Medical History PMH As described under Assessment. Family Medical History Family Medical History: Mother had severe hypertension and from its complications, according to the patient Patient does not report fam h/o early CAD or SCD Allergies and Home Medications Allergies Coded Allergies: lisinopril (Verified Allergy, Unknown, Angioedema, 04/11/20) Home Medications Amlodipine Besylate 5 Mg Tablet, 10 MG PO DAILY Prescribed by: SHAKIRA MISHRA on 06/24/15913 Citalopram Hydrobromide 20 Mg Tablet, 20 MG PO DAILY, (Reported) Clonidine HCl 0.1 Mg Tablet, 0.1 MG PO BID Prescribed by: SHAKIRA MISHRA on 06/24/15913 Ferrous Sulfate 325 Mg Tablet, 325 MG PO HS, (Reported) Levonorgestrel-Ethin Estradiol 1 Each Tablet, 1 TAB PO DAILY, (Reported) Lisinopril 40 Mg Tablet, 40 MG PO DAILY, (Reported) [place] 3 Polyunsat Fatty Acids 1,000 Mg Cap, 1,000 MG PO HS, (Reported) Omeprazole 40 Mg Capsule.dr, 40 MG PO DAILY Prescribed by: SHAKIRA MISHRA on 06/24/15916 Ondansetron 8 Mg Tab.rapdis, 8 MG PO Q6H PRN for NAUSEA Prescribed by: SHAKIRA MISHRA on 06/24/15916 Sucralfate 1 Gm Tablet, 1 GM PO ACHS Prescribed by: SHAKIRA MISHRA on 06/24/15916 Patient Home Medication List Home Medication List Reviewed: Yes Physical Exam-Cardiology Physical Exam Vital Signs/I&O 04/11/20 04/11/20 12:48 17:20 Temp 35.2 Pulse 89 72 Resp 20 24 B/P (MAP) 244/144 (177) 211/138 Pulse Ox 100 100 O2 Delivery Room Air Room Air Capillary Refill : Less Than 3 Seconds Constitutional: AAO x 3, well-developed, well-nourished HEENT: EOMI, hearing is well preserved Neck: carotid pulses are 2 + bilaterally, with good upstrokes Respiratory: other Cardiovascular: regular rate-rhythm, S1 and S2 Gastrointestinal: soft, audible bowel sounds Extremities: No clubbing, No cyanosis, No significant edema Neurologic/Psychiatric: oriented x 3, other Skin: No rash on exposed areas, No ulcerations on exposed areas Data Review Labs Laboratory Tests 04/11/20 12:57: White Blood Count 8.7, Red Blood Count 4.60, Hemoglobin 13.1, Hematocrit 40, Mean Corpuscular Volume 87, Mean Corpuscular Hemoglobin 29, Mean Corpuscular Hemoglobin Concent 33, Red Cell Distribution Width 13.5, Platelet Count 320, Mean Platelet Volume 10.8, Immature Granulocyte % (Auto) 0, Neutrophils (%) (Auto) 72, Lymphocytes (%) (Auto) 23, Monocytes (%) (Auto) 5, Eosinophils (%) (Auto) 0, Basophils (%) (Auto) 0, Neutrophils # (Auto) 6.3, Lymphocytes # (Auto) 2.0, Monocytes # (Auto) 0.4, Eosinophils # (Auto) 0.0, Basophils # (Auto) 0.0, Immature Granulocyte # (Auto) 0.0, Prothrombin Time 15.0H, INR Comment 1.1, Activated Partial Thromboplast Time 28, D-Dimer 0.49, Sodium Level 137, Potassium Level 3.6, Chloride Level 103, Carbon Dioxide Level 22, Anion Gap 12, Blood Urea Nitrogen 12, Creatinine 1.37H, Estimat Glomerular Filtration Rate 51, BUN/Creatinine Ratio 9, Glucose Level 96, Calcium Level 9.7, Corrected Calcium 9.5, Magnesium Level 2.0, Total Bilirubin 0.3, Aspartate Amino Transf (AST/SGOT) 19, Alanine Aminotransferase (ALT/SGPT) 14, Alkaline Phosphatase 90, Total Creatine Kinase 115, Creatine Kinase MB 1.2, Myoglobin 43.9, Troponin I 0.032H, B-Type Natriuretic Peptide 179.6H, Total Protein 8.6H, Albumin 4.3, TSH [place] Testing 1.50, Serum Test, Qualitative NEGATIVE, Serum Alcohol < 10 04/11/20 14:42: Urine Color YELLOW, Urine Clarity CLEAR, Urine pH 6.0, Urine Specific [place] <=1.005, Urine Protein NEGATIVE, Urine Glucose (UA) NEGATIVE, Urine Ketones NEGATIVE, Urine Nitrite NEGATIVE, Urine Bilirubin NEGATIVE, Urine Urobilinogen 0.2, Urine Leukocyte Esterase NEGATIVE, Urine RBC (Auto) TRACE-I, Urine RBC RARE, Urine WBC RARE, Urine Squamous Epithelial Cells 5-10, Urine Crystals NONE, Urine Bacteria FEWH, Urine Casts NONE, Urine Mucus NEGATIVE, Urine Culture Indicated NO, Urine Opiates Screen NEGATIVE, Urine Oxycodone Screen NEGATIVE, Urine Methadone Screen NEGATIVE, Urine Propoxyphene Screen NEGATIVE, Urine Barbiturates Screen NEGATIVE, Ur Tricyclic Antidepressants Screen NEGATIVE, Urine Phencyclidine Screen NEGATIVE, Urine Amphetamines Screen NEGATIVE, Urine Methamphetamines Screen NEGATIVE, Urine Benzodiazepines Screen NEGATIVE, Urine Cocaine Screen NEGATIVE, Urine Cannabinoids Screen NEGATIVE A/P-Cardiology Assessment/Admission Diagnosis 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 Malignant hypertension with SHANAE-1, and ECG and echo evidence of LVH - Echo on 04/11/20: Moderate, concentric LVH; LVEF 50%; mild MR, PASP 25-30 mmHg Minimally elevated troponin, likely Type 2 [place] due to uncontrolled hypertension Chronic smoker of cigarettes Discussion and Recomendations * Transfer to a tertiary care facility for eval and treatment of middle cerebral artery aneurysm resulting in intermittent neurologic deficit. I called patient's attending physician, Dr Hollins, and communicated my opinion to him * Treat hypertension. See orders * I advised pt to be compliant with her bp meds and to quit smoking immediately and completely SEVERINO GOETZ MD FACP [facility] CCDS Apr 11, 2020 18:16
[2020-04-11] MEDS: niCARdipine 50 MG/NS 250 ML IV DRIP IV SCH ×2 (18:36)
[2020-04-12] MEDS: niCARdipine 50 MG/NS 250 ML IV DRIP IV SCH ×4 (00:46→13:23)
[2020-04-12 01:14] LABS: POTASSIUM 3.4 MMOL/L (3.6-5.0)
[2020-04-12 01:15] LABS: CALCIUM 9.7 MG/DL (8.5-10.1)
[2020-04-12 01:19] LABS: CREATININE SERUM 1.27 MG/DL (0.60-1.30); PHOSPHORUS 3.2 MG/DL (2.3-4.7)
[2020-04-12 01:54] LABS: BASOPHILS % (AUTO) 0 % (0-10); EOSINOPHILS % (AUTO) 0 % (0-10); HEMATOCRIT 38 % (35-52); HEMOGLOBIN 12.8 g/dL (11.5-16.0); LYMPHOCYTES % (AUTO) 35 % (12-44); MEAN CORPUSCULAR HEMOGLOBIN 29 pg (25-34); MEAN CORPUSCULAR HGB CONC 34 g/dL (32-36); MEAN CORPUSCULAR VOLUME 86 fL (80-99); MEAN PLATELET VOLUME 11.1 fL (9.0-12.2); MONOCYTES # (AUTO) 0.6 10^3/uL (0.0-1.0); MONOCYTES % (AUTO) 7 % (0-12); NEUTROPHILS # (AUTO) 4.8 10^3/uL (1.8-7.8); NEUTROPHILS % (AUTO) 58 % (42-75); PLATELET COUNT 322 10^3/uL (130-400); WHITE BLOOD COUNT 8.4 10^3/uL (4.3-11.0)
[2020-04-12] MEDS: MAGNESIUM 1 GM/100 ML IVPB 100 ML IV SCH (02:05)
[2020-04-12] MEDS: KCL 20 MEQ TAB (K-DUR) PO SCH (02:05)
--- NOTE | 2020-04-12 04:51 | Pulmonary Consultation ---
History of Present Illness History of Present Illness Date Seen by Provider: Apr 12, 2020 Time Seen by Provider: 04:46 Date of Admission Allergies and Home Medications Allergies Coded Allergies: lisinopril (Verified Allergy, Unknown, Angioedema, 04/11/20) Home Medications Amlodipine Besylate 5 Mg Tablet, 10 MG PO DAILY Prescribed by: SHAKIRA MISHRA on 06/24/15913 Citalopram Hydrobromide 20 Mg Tablet, 20 MG PO DAILY, (Reported) Clonidine HCl 0.1 Mg Tablet, 0.1 MG PO BID Prescribed by: SHAKIRA MISHRA on 06/24/15913 Ferrous Sulfate 325 Mg Tablet, 325 MG PO HS, (Reported) Levonorgestrel-Ethin Estradiol 1 Each Tablet, 1 TAB PO DAILY, (Reported) Lisinopril 40 Mg Tablet, 40 MG PO DAILY, (Reported) [place] 3 Polyunsat Fatty Acids 1,000 Mg Cap, 1,000 MG PO HS, (Reported) Omeprazole 40 Mg Capsule.dr, 40 MG PO DAILY Prescribed by: SHAKIRA MISHRA on 06/24/15916 Ondansetron 8 Mg Tab.rapdis, 8 MG PO Q6H PRN for NAUSEA Prescribed by: SHAKIRA MISHRA on 06/24/15916 Sucralfate 1 Gm Tablet, 1 GM PO ACHS Prescribed by: SHAKIRA MISHRA on 06/24/15916 Past Pgqrrvp-Seszjp-Zhswxb Hx Past Med/Social Hx: Reviewed and Corrections made Patient Social History Alcohol Use: Occasionally Uses Drug of Choice: DENIES Smoking Status: Current Everyday Smoker Type Used: Cigarettes Recent Infectious Disease Expo: No Have you traveled recently?: No Alcohol Use?: No Immunizations Up To Date Tetanus Booster (TDap): Unknown PED Vaccines UTD: Yes Past Medical History Surgeries: Yes ( X 4) Section Respiratory: No Currently Using CPAP: No Cardiac: Yes (QUIT TAKING MEDICATIONS YEARS AGO, PER PT 04/11/20) Hypertension Neurological: No : No Reproductive Disorders: No (PERIMENOPAUSAL) Female Reproductive Disorders: Denies Genitourinary: No Gastrointestinal: No Musculoskeletal: No Endocrine: No HEENT: No Cancer: No Psychosocial: Yes (DOES NOT TAKE ANY MEDICATIONS) Anxiety, Depression Integumentary: No Blood Disorders: No Review of Systems Time Seen by Provider: 04:48 Sepsis Event Evaluation Height, Weight, BMI Height: 5'3.00" Weight: 142lbs. 9.0oz. 64.665964xy; 26.56 BMI Method:Stated Exam Exam Vital Signs Date Time Temp Pulse Resp B/P (MAP) Pulse Ox O2 Delivery O2 Flow Rate FiO2 04/12/20 04:00 100 Room Air 04/12/20 03:00 72 144/92 (109) 98 Room Air 04/12/20 02:00 74 16 138/91 (107) 98 Room Air 04/12/20 01:00 74 04/12/20 01:00 80 35 142/98 (113) 100 Room Air 04/12/20 00:00 70 28 150/94 (112) 99 Room Air 04/12/20 00:00 100 Room Air 04/11/20 23:00 71 32 147/93 (111) 100 Room Air 04/11/20 22:00 80 16 157/100 (119) 99 Room Air 04/11/20 21:00 79 15 147/104 (118) 100 Room Air 04/11/20 20:50 81 19 170/106 (127) 100 Room Air 04/11/20 20:03 75 26 180/119 (139) 100 Room Air 04/11/20 20:00 100 Room Air 04/11/20 19:00 78 27 195/134 (154) 100 Room Air 04/11/20 19:00 78 04/11/20 18:24 100 Room Air 04/11/20 18:00 73 14 192/137 (155) 100 Room Air 04/11/20 17:42 77 04/11/20 17:20 72 24 211/138 100 Room Air 04/11/20 17:15 213/135 (161) Room Air 04/11/20 12:48 35.2 89 20 244/144 (177) 100 Room Air I & O 04/12/20 07:00 Intake Total 450 ml Balance 450 ml Height & Weight Height: 5'3.00" Weight: 142lbs. 9.0oz. 64.902979cp; 26.56 BMI Method:Stated General Appearance: No Apparent Distress, WD/WN HEENT: PERRL/EOMI, TMs Normal, Normal ENT Inspection, Pharynx Normal Neck: Full Range of Motion, Normal Inspection, Non Tender, Supple; No Carotid Bruit, No JVD Respiratory: Normal Breath Sounds, No Accessory Muscle Use, No Respiratory Distress Cardiovascular: Regular Rate, Rhythm, No Edema, No JVD, No Murmur, Normal Peripheral Pulses Capillary Refill: Less Than 3 Seconds Extremity: Normal Capillary Refill, Normal Inspection, Normal Range of Motion, Non Tender, No Calf Tenderness, No Pedal Edema Neurologic/Psychiatric: Alert, Oriented x3, No Motor/Sensory Deficits, Normal 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
[2020-04-12] MEDS ORDERED: ACETAMINOPHEN 325 MG TABLET PO PRN (05:00)
[2020-04-12] MEDS: POTASSIUM CL 10MEQ/50ML IVPB 50 ML IV SCH (05:21)
--- NOTE | 2020-04-12 07:08 | Diagnostic Imaging Report ---
INDICATION: Hypertension. Dyspnea. COMPARISON: 04/11/2020 FINDINGS: Single frontal radiographic view of the chest was obtained and demonstrates persistent wgse-qo-jqgsqocj cardiomegaly. Pulmonary vasculature is within normal limits. Lungs remain clear. There is no focal consolidation, large effusion, nor pneumothorax. Osseous structures show no acute abnormalities. IMPRESSION: 1. Stable mild to moderate cardiomegaly. 2. No evidence of failure or focal infiltrate. Dictated by: Dictated on workstation # [id number]
[2020-04-12] MEDS: ASPIRIN 81 MG CHEW (CHILDREN'S ASA) PO SCH (08:06)
[2020-04-12] MEDS: amLODIPine 10 MG (NORVASC) TAB PO SCH (08:06)
[2020-04-12] MEDS ORDERED: KCL 20 MEQ TAB (K-DUR) PO ONE (09:00)
[2020-04-12] MEDS ORDERED: CARVEDILOL 12.5 MG (COREG) TABLET PO SCH ×2 (09:00)
[2020-04-12] MEDS ORDERED: meTOprolol SUCCINATE 100 MG (TOPROL XL) TAB PO SCH ×2 (09:00→21:00)
[2020-04-12] MEDS ORDERED: lisINopril 40 MG (PRINIVIL) TABLET PO SCH (09:00)
--- NOTE | 2020-04-12 09:08 | Progress Note - Cardiology ---
Cardiology SOAP Progress Note Subjective: Sitting up in bed eating morning meal No c/o CP, palpitations or SOB C/O FLAHERTY earlier this morning, which has resolved Objective: I&O/Vital Signs 04/12/20 04/13/20 04/13/20 04/13/20 23:00 00:00 00:00 01:00 Pulse 64 77 72 Resp 21 14 B/P (MAP) 151/104 (120) 133/93 (106) Pulse Ox 99 100 98 O2 Delivery Room Air Room Air Room Air 04/13/20 04/13/20 04/13/20 04/13/20 01:00 02:00 03:00 04:00 Pulse 72 65 68 68 Resp 18 9 B/P (MAP) 142/97 (112) 158/107 (124) 167/118 (134) 180/112 (134) Pulse Ox 99 96 98 99 O2 Delivery Room Air Room Air Room Air Room Air 04/13/20 04/13/20 04/13/20 04/13/20 04:00 05:00 06:00 06:51 Pulse 84 73 69 Resp 11 29 B/P (MAP) 155/125 (135) 181/115 (137) Pulse Ox 100 97 94 O2 Delivery Room Air Room Air Room Air 04/13/20 04/13/20 04/13/20 04/13/20 07:31 08:00 08:00 10:00 Temp 36.3 Pulse 76 73 Resp 27 19 B/P (MAP) 154/100 (118) 141/105 (117) Pulse Ox 99 100 100 O2 Delivery Room Air Room Air Room Air 04/13/20 00:00 Intake Total 975 ml Balance 975 ml Weight (Pounds): 142 Weight (Ounces): 9.0 Weight (Calculated Kilograms): 64.409057 Constitutional: AAO x 3, well-developed, well-nourished Respiratory: other Cardiovascular: regular rate-rhythm, S1 and S2 Gastrointestional: soft, audible bowel sounds Extremities: No clubbing, No cyanosis, No significant edema Neurologic/Psychiatric: oriented x 3, other Skin: No rash on exposed areas, No ulcerations on exposed areas Results/Procedures: Labs Laboratory Tests 04/13/20 02:54: White Blood Count 9.3, Red Blood Count 4.73, Hemoglobin 13.5, Hematocrit 41, Mean Corpuscular Volume 86, Mean Corpuscular Hemoglobin 29, Mean Corpuscular Hemoglobin Concent 33, Red Cell Distribution Width 13.6, Platelet Count 364, Mean Platelet Volume 10.8, Immature Granulocyte % (Auto) 0, Neutrophils (%) (Auto) 62, Lymphocytes (%) (Auto) 32, Monocytes (%) (Auto) 6, Eosinophils (%) (Auto) 0, Basophils (%) (Auto) 0, Neutrophils # (Auto) 5.7, Lymphocytes # (Auto) 2.9, Monocytes # (Auto) 0.5, Eosinophils # (Auto) 0.0, Basophils # (Auto) 0.0, Immature Granulocyte # (Auto) 0.0, Sodium Level 137, Potassium Level 3.7, Chloride Level 105, Carbon Dioxide Level 20L, Anion Gap 12, Blood Urea Nitrogen 12, Creatinine 1.37H, Estimat Glomerular Filtration Rate 51, BUN/Creatinine Ratio 9, Glucose Level 97, Calcium Level 10.5H, Phosphorus Level 3.4, Magnesium Level 2.0 Procedures NAME: [facility] REC#: [id number] PT STATUS: ADM IN : 1975 PHYSICIAN: ANA LEVY MD ADMIT DATE: 04/11/20/ICU Signed Date of Exam:04/12/20 CHEST 1 VIEW, AP/PA ONLY INDICATION: Hypertension. Dyspnea. COMPARISON: 04/11/2020 FINDINGS: Single frontal radiographic view of the chest was obtained and demonstrates persistent gqzz-ep-bdofnykf cardiomegaly. Pulmonary vasculature is within normal limits. Lungs remain clear. There is no focal consolidation, large effusion, nor pneumothorax. Osseous structures show no acute abnormalities. IMPRESSION: 1. Stable mild to moderate cardiomegaly. 2. No evidence of failure or focal infiltrate. 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 Malignant hypertension with SHANAE-1, and ECG and echo evidence of LVH - Echo on 04/11/20: Moderate, concentric LVH; LVEF 50%; mild MR, PASP 25-30 mmHg Minimally elevated troponin, likely Type 2 [place] due to uncontrolled hypertension Chronic smoker of cigarettes Plan: * Transfer to a tertiary care facility for eval and treatment of middle cerebral artery aneurysm resulting in intermittent neurologic deficit. Dr. Marquis has spoken with patient's attending physician, Dr Levy, and communicated his op inion to him * Remains on Cardene gtt * Continue Metoprolol succinate 100mg and increase dose to BID - adjust as indicated * Stop Cardene gtt * Advised pt to be compliant with her bp meds and to quit smoking immediately and completely * Replace potassium FAUSTO RICHARDSON Apr 12, 2020 09:08
[2020-04-12] MEDS ORDERED: hydrALAZINE (APESOLINE) 20 MG/ML VIAL IV PRN (09:30)
[2020-04-12] MEDS ORDERED: HYDROCHLOROTHIAZIDE 25 MG (HCTZ) TAB PO NR (09:30)
[2020-04-12] MEDS ORDERED: LABETALOL HCL 20 MG/4 ML VIAL IV PRN (09:30)
[2020-04-12] MEDS ORDERED: hydrALAZINE (APRESOLINE) 25 MG TAB PO NR (09:30)
[2020-04-12] MEDS ORDERED: hydrALAZINE (APRESOLINE) 25 MG TAB PO SCH (14:00)
--- NOTE | 2020-04-12 15:29 | Progress Note - Cardiology ---
Cardiology SOAP Progress Note Subjective: No cp or palp or syncope or shortness of breath No recurrence of limb weakness No n/v/d Gen weakness Objective: I&O/Vital Signs 04/12/20 04/12/20 04/12/20 04/12/20 04:00 04:00 04:00 05:00 Temp 36.8 Pulse 78 70 Resp 11 14 B/P (MAP) 135/94 (108) 144/89 (107) Pulse Ox 100 100 100 O2 Delivery Room Air Room Air Room Air 04/12/20 04/12/20 04/12/20 04/12/20 06:00 06:43 07:00 07:30 Temp 36.8 Pulse 70 79 72 Resp 15 14 B/P (MAP) 127/77 (94) 147/107 (120) Pulse Ox 100 100 O2 Delivery Room Air Room Air 04/12/20 04/12/20 04/12/20 04/12/20 08:00 08:15 09:00 10:00 Pulse 71 68 68 Resp 9 19 17 B/P (MAP) 143/104 (117) 140/105 (117) 150/110 (123) Pulse Ox 100 100 100 O2 Delivery Room Air Room Air Room Air Room Air 04/12/20 04/12/20 04/12/20 04/12/20 11:00 11:00 11:45 12:00 Temp 36.2 Pulse 70 73 Resp 23 22 B/P (MAP) 146/108 (121) 153/111 (125) Pulse Ox 100 O2 Delivery Room Air Room Air Room Air 04/12/20 04/12/20 04/12/20 04/12/20 12:47 13:00 14:00 15:00 Pulse 69 72 68 73 Resp 38 60 36 B/P (MAP) 145/128 (134) 151/98 (115) 144/123 (130) O2 Delivery Room Air Room Air Room Air 04/12/20 15:05 Pulse Ox 100 O2 Delivery Room Air 04/11/20 23:59 Intake Total 450 ml Balance 450 ml Weight (Pounds): 142 Weight (Ounces): 9.0 Weight (Calculated Kilograms): 64.803538 Constitutional: AAO x 3, well-developed, well-nourished Respiratory: other Cardiovascular: regular rate-rhythm, S1 and S2 Gastrointestional: soft, audible bowel sounds Extremities: No clubbing, No cyanosis, No significant edema Neurologic/Psychiatric: oriented x 3, other Skin: No rash on exposed areas, No ulcerations on exposed areas Results/Procedures: Labs Laboratory Tests 04/11/20 19:10: Troponin I 0.034H 04/12/20 00:56: Troponin I 0.070H, White Blood Count 8.4, Red Blood Count 4.40, Hemoglobin 12.8, Hematocrit 38, Mean Corpuscular Volume 86, Mean Corpuscular Hemoglobin 29, Mean Corpuscular Hemoglobin Concent 34, Red Cell Distribution Width 13.6, Platelet Count 322, Mean Platelet Volume 11.1, Immature Granulocyte % (Auto) 0, Neutrophils (%) (Auto) 58, Lymphocytes (%) (Auto) 35, Monocytes (%) (Auto) 7, Eosinophils (%) (Auto) 0, Basophils (%) (Auto) 0, Neutrophils # (Auto) 4.8, Lymphocytes # (Auto) 3.0, Monocytes # (Auto) 0.6, Eosinophils # (Auto) 0.0, Basophils # (Auto) 0.0, Immature Granulocyte # (Auto) 0.0, Sodium Level 141, Potassium Level 3.4L, Chloride Level 106, Carbon Dioxide Level 21, Anion Gap 14, Blood Urea Nitrogen 11, Creatinine 1.27, Estimat Glomerular Filtration Rate 55, BUN/Creatinine Ratio 9, Glucose Level 95, Calcium Level 9.7, Phosphorus Level 3.2, Magnesium Level 2.0 Laboratory Tests 04/11/20 12:57 04/12/20 00:56 A/P: Assessment: 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 Malignant hypertension with SHANAE-1, and ECG and echo evidence of LVH - Echo on 04/11/20: Moderate, concentric LVH; LVEF 50%; mild MR, PASP 25-30 mmHg Minimally elevated troponin, likely Type 2 [place] due to uncontrolled hypertension Chronic smoker of cigarettes Plan: * I again had a detailed discussion with the patient and also today with her who was at the bedside. The likely cause of her presentation with transient L arm weakness is the L MCA aneurysm. I have discussed this with Dr Hollins to whom she has been admitted. Our recommendation is transfer to a tertiary care facility for evaluation and treatment of this problem * Increase oral beta-bren and stop iv beta-bren * Continue amlodipine and diuretic * Consider alpha-blockers if above regimen is inadequate for bp control * Advised pt to be compliant with her bp meds and to quit smoking immediately and completely * Replace potassium SEVERINO GOETZ MD FACP FAC CCDS Apr 12, 2020 15:29
--- NOTE | 2020-04-12 20:34 | History & Physical-Hospitalist ---
History of Present Illness HPI/Chief Complaint Emmy Barry is a 45 year old female with uncontrolled HTN, tobacco abuse, who presented with left arm numbness. She has not been following with a physician and has not been compliant with her antihypertensives. She reports that she has had issues with headaches. She has also had some vision problems. She denies chest pain. She denies shortness of breath. She denies weakness. She is a current every day smoker. Her workup found her to be severely hypertensive. She was also found to have a newly diagnosed brain aneurysm. Her case was discussed with a physician at [facility] and they did not believe her presentation to be related to her aneurysm. They recommended outpatient follow up after her hospitalization. Source: patient, RN/MD Exam Limitations: no limitations Date Seen 04/12/20 Time Seen by a Provider: 09:00 Attending Physician Holli Levy MD PCP No,Local Physician Referring Physician Date of Admission Apr 11, 2020 at 16:05 Home Medications & Allergies Home Medications Reviewed patient Home Medication Reconciliation performed by pharmacy medication reconciliations helicopter technician and/or nursing. Patients Allergies have been reviewed. Allergies Allergies Coded Allergies lisinopril (Verified Allergy, Unknown, Angioedema, 04/11/20) Past [id number] Hx Past Med/Social Hx: Reviewed Nursing Past Med/Soc Hx Patient Social History Alcohol Use: Occasionally Uses Recreational Drug Use: No Drug of Choice: DENIES Smoking Status: Current Everyday Smoker Type Used: Cigarettes Recent Foreign Travel: No Contact w/other who traveled: No Recent Infectious Disease Expo: No Immunizations Up To Date Tetanus Booster (TDap): Unknown Pediatric: Yes Past Medical History Surgeries: Section Currently Using CPAP: No Cardiac: Hypertension : No Reproductive: No (PERIMENOPAUSAL) Female Reproductive Disorders: Denies Psychosocial: Anxiety, Depression History of Blood Disorders: No Review of Systems Constitutional: no symptoms reported EENTM: blurred vision Respiratory: no symptoms reported Cardiovascular: no symptoms reported Gastrointestinal: no symptoms reported Genitourinary: no symptoms reported Musculoskeletal: no symptoms reported Skin: no symptoms reported Psychiatric/Neurological: Numbness Physical Exam Physical Exam Vital Signs Vital Signs - First Documented 04/11/20 12:48 Temp 35.2 Pulse 89 Resp 20 B/P (MAP) 244/144 (177) Pulse Ox 100 O2 Delivery Room Air Capillary Refill : Less Than 3 Seconds Height, Weight, BMI Height: 5'3.00" Weight: 142lbs. 9.0oz. 64.821232vp; 26.56 BMI Method:Stated General Appearance: No Apparent Distress, WD/WN HEENT: PERRL/EOMI, Pharynx Normal Neck: Normal Inspection, Supple Respiratory: Lungs Clear, Normal Breath Sounds, No Respiratory Distress Cardiovascular: Regular Rate, Rhythm, No Edema, No Murmur Gastrointestinal: Normal Bowel Sounds, Non Tender, Soft Extremity: Normal Inspection, Non Tender, No Pedal Edema Neurologic/Psychiatric: Alert, Oriented x3, No Motor/Sensory Deficits, Normal Mood/Affect, pump assembler II-XII Norm as Tested; No Motor Weakness, No Sensory Deficit Skin: Normal Color, Warm/Dry Results Results/Procedures Labs Laboratory Tests 04/11/20 12:57 04/12/20 00:56 Patient resulted labs reviewed. Imaging: Reviewed Imaging Report Assessment/Plan Admission Diagnosis Hypertensive emergency Admission Status: Inpatient Order (span 2 midnights) Reason for Inpatient Admission: HTN requiring IV medications Assessment and Plan HTN emergency HFpEF Elevated troponin BP significantly elevated on arrival, improved this morning Started on IV Cardene, transitioning off as able today Started on Metoprolol and Amlodipine Add HCTZ and Hydralazine IV Hydralazine and Labetalol as needed Troponin mildly elevated Echo revealed grade II diastolic dysfunction Cardiology consulted, appreciate assistance Pulmonology consulted, appreciate assistance Brain aneurysm CTA revealed left M2 aneurysm [facility] recommended outpatient follow up Renal failure SHANAE vs CKD Monitor Tobacco abuse Recommend cessation DVT prophylaxis: Lovenox Diagnosis/Problems Diagnosis/Problems (1) Hypertensive emergency Status: Acute (2) (HFpEF) heart failure with preserved ejection fraction Status: Acute (3) Elevated troponin Status: Acute (4) Brain aneurysm Status: Acute (5) Renal insufficiency Status: Acute (6) Tobacco abuse Status: Chronic HOLLI LEVY MD Apr 12, 2020 20:34
[2020-04-12] MEDS ORDERED: NICOTINE 14 MG (NICODERM) PATCH TD ONE (20:45)
[2020-04-12] MEDS: ENOXAPARIN 40 MG/0.4 ML (LOVENOX) SYR SC SCH (20:45)
[2020-04-12] MEDS: hydrALAZINE (APRESOLINE) 25 MG TAB PO SCH (22:00)
[2020-04-13] MEDS: niCARdipine 50 MG/NS 250 ML IV DRIP IV SCH ×2
[2020-04-13 03:31] LABS: BASOPHILS % (AUTO) 0 % (0-10); EOSINOPHILS % (AUTO) 0 % (0-10); HEMATOCRIT 41 % (35-52); HEMOGLOBIN 13.5 g/dL (11.5-16.0); LYMPHOCYTES # (AUTO) 2.9 10^3/uL (1.0-4.0); LYMPHOCYTES % (AUTO) 32 % (12-44); MEAN CORPUSCULAR HEMOGLOBIN 29 pg (25-34); MEAN CORPUSCULAR HGB CONC 33 g/dL (32-36); MEAN CORPUSCULAR VOLUME 86 fL (80-99); MEAN PLATELET VOLUME 10.8 fL (9.0-12.2); MONOCYTES # (AUTO) 0.5 10^3/uL (0.0-1.0); MONOCYTES % (AUTO) 6 % (0-12); NEUTROPHILS # (AUTO) 5.7 10^3/uL (1.8-7.8); NEUTROPHILS % (AUTO) 62 % (42-75); PLATELET COUNT 364 10^3/uL (130-400); WHITE BLOOD COUNT 9.3 10^3/uL (4.3-11.0)
[2020-04-13 03:41] LABS: POTASSIUM 3.7 MMOL/L (3.6-5.0)
[2020-04-13 03:42] LABS: CALCIUM 10.5 MG/DL (8.5-10.1)
[2020-04-13 03:46] LABS: PHOSPHORUS 3.4 MG/DL (2.3-4.7)
[2020-04-13 03:47] LABS: CREATININE SERUM 1.37 MG/DL (0.60-1.30)
[2020-04-13] MEDS: POTASSIUM CL 10MEQ/50ML IVPB 50 ML IV SCH (04:51)
[2020-04-13] MEDS: MAGNESIUM 1 GM/100 ML IVPB 100 ML IV SCH (04:51)
[2020-04-13] MEDS: KCL 20 MEQ TAB (K-DUR) PO SCH (04:51)
--- NOTE | 2020-04-13 05:40 | Pulmonary Progress Note ---
Subjective Time Seen by a Provider: 05:37 Subjective/Events-last exam No complications noted. Sepsis Event Evaluation Height, Weight, BMI Height: 5'3.00" Weight: 142lbs. 9.0oz. 64.940623bz; 26.56 BMI Method:Stated Exam Exam Vital Signs Date Time Temp Pulse Resp B/P (MAP) Pulse Ox O2 Delivery O2 Flow Rate FiO2 04/13/20 05:00 84 11 155/125 (135) 97 Room Air 04/13/20 04:00 100 Room Air 04/13/20 04:00 68 180/112 (134) 99 Room Air 04/13/20 03:00 68 167/118 (134) 98 Room Air 04/13/20 02:00 65 9 158/107 (124) 96 Room Air 04/13/20 01:00 72 18 142/97 (112) 99 Room Air 04/13/20 01:00 72 04/13/20 00:00 77 14 133/93 (106) 98 Room Air 04/13/20 00:00 100 Room Air 04/12/20 23:00 64 21 151/104 (120) 99 Room Air 04/12/20 22:00 75 35 158/110 (126) 98 Room Air 04/12/20 21:00 76 23 181/132 (148) Room Air 04/12/20 20:00 100 Room Air 04/12/20 20:00 73 30 171/104 (126) Room Air 04/12/20 19:00 79 30 172/122 (139) Room Air 04/12/20 19:00 79 04/12/20 18:00 75 19 170/112 (131) Room Air 04/12/20 17:00 67 14 178/120 (139) Room Air 04/12/20 16:00 70 16 148/93 (111) Room Air 04/12/20 15:05 100 Room Air 04/12/20 15:00 73 36 144/123 (130) Room Air 04/12/20 14:00 68 60 151/98 (115) Room Air 04/12/20 13:00 72 38 145/128 (134) Room Air 04/12/20 12:47 69 04/12/20 12:00 73 22 153/111 (125) Room Air 04/12/20 11:45 100 Room Air 04/12/20 11:00 70 23 146/108 (121) Room Air 04/12/20 11:00 36.2 04/12/20 10:00 68 17 150/110 (123) Room Air 04/12/20 09:00 68 19 140/105 (117) 100 Room Air 04/12/20 08:15 100 Room Air 04/12/20 08:00 71 9 143/104 (117) 100 Room Air 04/12/20 07:30 36.8 04/12/20 07:00 72 14 147/107 (120) 100 Room Air 04/12/20 06:43 79 04/12/20 06:00 70 15 127/77 (94) 100 Room Air I & O 04/13/20 07:00 Intake Total 1625 ml Balance 1625 ml Height & Weight Height: 5'3.00" Weight: 142lbs. 9.0oz. 64.877876wa; 26.56 BMI Method:Stated General Appearance: No Apparent Distress, WD/WN HEENT: PERRL/EOMI, Pharynx Normal Neck: Normal Inspection, Supple Respiratory: Lungs Clear, Normal Breath Sounds, No Respiratory Distress Cardiovascular: Regular Rate, Rhythm, No Edema, No Murmur Capillary Refill: Less Than 3 Seconds Extremity: Normal Inspection, Non Tender, No Pedal Edema Neurologic/Psychiatric: Alert, Oriented x3, No Motor/Sensory Deficits, Normal Mood/Affect, election clerk II-XII Norm as Tested; No Motor Weakness, No Sensory Deficit Skin: Normal Color, Warm/Dry Results Lab Laboratory Tests 04/11/20 12:57 04/12/20 00:56 04/13/20 02:54 Assessment/Plan Assessment/Plan HTN emergency -Cardene gtt -- is off -Continue Toprol and Norvasc -Hydralazine is off NSTEMI -Cardiology consulted Grade II diastolic dysfunction per echo Small cerebral aneurysm ARF -Monitor medical noncompliance LD SMALL DO Apr 13, 2020 05:40
[2020-04-13] MEDS: hydrALAZINE (APRESOLINE) 25 MG TAB PO SCH ×3 (06:47→21:42)
--- NOTE | 2020-04-13 07:26 | Diagnostic Imaging Report ---
INDICATION: Dyspnea Portable chest shows mild cardiomegaly with normal vascularity. The lungs are clear. There is no effusion or pneumothorax. There is no acute bony abnormality. IMPRESSION: Cardiomegaly with no failure. Stable chest compared to the 04/12/2020 study. Dictated by: Dictated on workstation # [id number]
[2020-04-13] MEDS: HYDROCHLOROTHIAZIDE 25 MG (HCTZ) TAB PO SCH (08:20)
[2020-04-13] MEDS: amLODIPine 10 MG (NORVASC) TAB PO SCH (08:20)
[2020-04-13] MEDS: NICOTINE 14 MG (NICODERM) PATCH TD SCH (08:21)
[2020-04-13] MEDS: meTOprolol SUCCINATE 100 MG (TOPROL XL) TAB PO SCH (08:21)
[2020-04-13] MEDS: ASPIRIN 81 MG CHEW (CHILDREN'S ASA) PO SCH (08:21)
[2020-04-13] MEDS: NICOTINE PATCH REMOVAL TP SCH (08:22)
[2020-04-13] MEDS: LOSARTAN 100 MG (COZAAR) TABLET PO SCH (08:58)
[2020-04-13] MEDS: niCARdipine IV 50 MG in NS (IVPB) 230 ML IV SCH ×2 (09:30→11:02)
--- NOTE | 2020-04-13 10:51 | Progress Note - Cardiology ---
Cardiology SOAP Progress Note Subjective: Lying in bed No c/o CP, SOB, palpitations or FLAHERTY today Objective: I&O/Vital Signs 04/13/20 04/13/20 04/13/20 04/13/20 04:00 04:00 05:00 06:00 Pulse 68 84 73 Resp 11 29 B/P (MAP) 180/112 (134) 155/125 (135) 181/115 (137) Pulse Ox 99 100 97 94 O2 Delivery Room Air Room Air Room Air Room Air 04/13/20 04/13/20 04/13/20 04/13/20 06:51 07:31 08:00 08:00 Temp 36.3 Pulse 69 76 Resp 27 B/P (MAP) 154/100 (118) Pulse Ox 99 100 O2 Delivery Room Air Room Air 04/13/20 04/13/20 04/13/20 04/13/20 10:00 11:00 11:34 12:00 Temp 36.3 Pulse 73 73 68 Resp 19 37 30 B/P (MAP) 141/105 (117) 137/86 (103) 145/90 (108) Pulse Ox 100 100 100 O2 Delivery Room Air Room Air Room Air 04/13/20 04/13/20 04/13/20 04/13/20 12:00 12:43 13:00 14:00 Pulse 69 68 69 Resp 19 67 B/P (MAP) 158/93 (114) 136/88 (104) Pulse Ox 100 100 100 O2 Delivery Room Air Room Air Room Air 04/13/20 04/13/20 04/13/20 15:00 15:26 15:28 Temp 36.4 Pulse 75 Resp 73 B/P (MAP) 142/91 (108) Pulse Ox 99 100 O2 Delivery Room Air Room Air 04/13/20 00:00 Intake Total 975 ml Balance 975 ml Weight (Pounds): 142 Weight (Ounces): 9.0 Weight (Calculated Kilograms): 64.423531 Constitutional: AAO x 3, well-developed, well-nourished Respiratory: other Cardiovascular: regular rate-rhythm, S1 and S2 Gastrointestional: soft, audible bowel sounds Extremities: No clubbing, No cyanosis, No significant edema Neurologic/Psychiatric: oriented x 3, other Skin: No rash on exposed areas, No ulcerations on exposed areas Results/Procedures: Labs Laboratory Tests 04/13/20 02:54: White Blood Count 9.3, Red Blood Count 4.73, Hemoglobin 13.5, Hematocrit 41, Mean Corpuscular Volume 86, Mean Corpuscular Hemoglobin 29, Mean Corpuscular Hemoglobin Concent 33, Red Cell Distribution Width 13.6, Platelet Count 364, Mean Platelet Volume 10.8, Immature Granulocyte % (Auto) 0, Neutrophils (%) (Auto) 62, Lymphocytes (%) (Auto) 32, Monocytes (%) (Auto) 6, Eosinophils (%) (Auto) 0, Basophils (%) (Auto) 0, Neutrophils # (Auto) 5.7, Lymphocytes # (Auto) 2.9, Monocytes # (Auto) 0.5, Eosinophils # (Auto) 0.0, Basophils # (Auto) 0.0, Immature Granulocyte # (Auto) 0.0, Sodium Level 137, Potassium Level 3.7, Chloride Level 105, Carbon Dioxide Level 20L, Anion Gap 12, Blood Urea Nitrogen 12, Creatinine 1.37H, Estimat Glomerular Filtration Rate 51, BUN/Creatinine Ratio 9, Glucose Level 97, Calcium Level 10.5H, Phosphorus Level 3.4, Magnesium Level 2.0 A/P: Assessment: 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 Malignant hypertension with SHANAE-1, and ECG and echo evidence of LVH - Echo on 04/11/20: Moderate, concentric LVH; LVEF 50%; mild MR, PASP 25-30 mmHg Minimally elevated troponin, likely Type 2 [place] due to uncontrolled hypertension Chronic smoker of cigarettes Plan: * Dr. Marquis has had a detailed discussion with the patient and also today with her who was at the bedside on 04-12-20. The likely cause of her pres entation with transient L arm weakness is the L MCA aneurysm. I have discussed this with Dr Hollins to whom she has been admitted. Our recommendation is transfer to a tertiary care facility for evaluation and treatment of this problem * BP remains uncontrolled despite multi-antihypertensive regiment * We will increase Toprol XL to 200mg in the morning and 100mg at hs * Consider alpha-blockers if above regimen is inadequate for bp control * Advised pt to be compliant with her bp meds and to quit smoking immediately and completely FAUSTO RICHARDSON Apr 13, 2020 10:51
--- NOTE | 2020-04-13 12:14 | Progress Note - Hospitalist ---
Subjective HPI/CC On Admission Date Seen by Provider: Apr 13, 2020 Time Seen by Provider: 09:15 Emmy Barry is a 45 year old female with uncontrolled HTN, tobacco abuse, who presented with left arm numbness. She has not been following with a physician and has not been compliant with her antihypertensives. She reports that she has had issues with headaches. She has also had some vision problems. She denies chest pain. She denies shortness of breath. She denies weakness. She is a current every day smoker. Her workup found her to be severely hypertensive. She was also found to have a newly diagnosed brain aneurysm. Her case was discussed with a physician at [facility] and they did not believe her presentation to be related to her aneurysm. They recommended outpatient follow up after her hospitalization. Subjective/Events-last exam She is feeling well today. She has no complaints or concerns. She denies any headaches. She denies any vision changes. She denies any numbness or weakness. She denies chest pain and shortness of breath. Objective Exam Vital Signs Vital Signs Date Time Temp Pulse Resp B/P (MAP) Pulse Ox O2 Delivery O2 Flow Rate FiO2 04/13/20 11:34 36.3 04/13/20 11:00 73 37 137/86 (103) 100 Room Air Capillary Refill : Less Than 3 Seconds General Appearance: No Apparent Distress, WD/WN Respiratory: Lungs Clear, Normal Breath Sounds, No Respiratory Distress Cardiovascular: Regular Rate, Rhythm, No Edema, No Murmur Gastrointestinal: Normal Bowel Sounds, Non Tender, Soft Extremity: Normal Inspection, Non Tender, No Pedal Edema Neurologic/Psychiatric: Alert, Oriented x3, No Motor/Sensory Deficits, Normal Mood/Affect Skin: Normal Color, Warm/Dry Results/Procedures Lab Laboratory Tests 04/13/20 02:54 Patient resulted labs reviewed. Imaging: Reviewed Imaging Report Assessment/Plan Assessment and Plan Assess & Plan/Chief Complaint HTN emergency HFpEF Elevated troponin BP remains uncontrolled Increasing Metoprolol Continue Amlodipine Continue HCTZ Increase Hydralazine Add Losartan Resume IV Cardene with goal <160/100 Cardiology consulted, appreciate assistance Pulmonology consulted, appreciate assistance Brain aneurysm CTA revealed left M2 aneurysm [facility] recommended outpatient follow up Renal failure Likely CKD Monitor Tobacco abuse Recommend cessation DVT prophylaxis: Lovenox Diagnosis/Problems Diagnosis/Problems (1) Hypertensive emergency Status: Acute (2) (HFpEF) heart failure with preserved ejection fraction Status: Acute (3) Elevated troponin Status: Acute (4) Brain aneurysm Status: Acute (5) Renal insufficiency Status: Acute (6) Tobacco abuse Status: Chronic ANA LEVY MD Apr 13, 2020 12:14
--- NOTE | 2020-04-13 15:28 | Progress Note - Cardiology ---
Cardiology SOAP Progress Note Subjective: No cp or palp or syncope or shortness of breath No recurrence of arm weakness Denies n/v/d Objective: I&O/Vital Signs 04/13/20 04/13/20 04/13/20 04/13/20 04:00 04:00 05:00 06:00 Pulse 68 84 73 Resp 11 29 B/P (MAP) 180/112 (134) 155/125 (135) 181/115 (137) Pulse Ox 99 100 97 94 O2 Delivery Room Air Room Air Room Air Room Air 04/13/20 04/13/20 04/13/20 04/13/20 06:51 07:31 08:00 08:00 Temp 36.3 Pulse 69 76 Resp 27 B/P (MAP) 154/100 (118) Pulse Ox 99 100 O2 Delivery Room Air Room Air 04/13/20 04/13/20 04/13/20 04/13/20 10:00 11:00 11:34 12:00 Temp 36.3 Pulse 73 73 68 Resp 19 37 30 B/P (MAP) 141/105 (117) 137/86 (103) 145/90 (108) Pulse Ox 100 100 100 O2 Delivery Room Air Room Air Room Air 04/13/20 04/13/20 04/13/20 04/13/20 12:00 12:43 13:00 14:00 Pulse 69 68 69 Resp 19 67 B/P (MAP) 158/93 (114) 136/88 (104) Pulse Ox 100 100 100 O2 Delivery Room Air Room Air Room Air 04/13/20 15:00 Pulse 75 Resp 73 B/P (MAP) 142/91 (108) Pulse Ox 99 O2 Delivery Room Air 04/13/20 00:00 Intake Total 975 ml Balance 975 ml Weight (Pounds): 142 Weight (Ounces): 9.0 Weight (Calculated Kilograms): 64.816985 Constitutional: AAO x 3, well-developed, well-nourished Respiratory: other Cardiovascular: regular rate-rhythm, S1 and S2 Gastrointestional: soft, audible bowel sounds Extremities: No clubbing, No cyanosis, No significant edema Neurologic/Psychiatric: oriented x 3, other Skin: No rash on exposed areas, No ulcerations on exposed areas Results/Procedures: Labs Laboratory Tests 04/13/20 02:54: White Blood Count 9.3, Red Blood Count 4.73, Hemoglobin 13.5, Hematocrit 41, Mean Corpuscular Volume 86, Mean Corpuscular Hemoglobin 29, Mean Corpuscular Hemoglobin Concent 33, Red Cell Distribution Width 13.6, Platelet Count 364, Mean Platelet Volume 10.8, Immature Granulocyte % (Auto) 0, Neutrophils (%) (Auto) 62, Lymphocytes (%) (Auto) 32, Monocytes (%) (Auto) 6, Eosinophils (%) (Auto) 0, Basophils (%) (Auto) 0, Neutrophils # (Auto) 5.7, Lymphocytes # (Auto) 2.9, Monocytes # (Auto) 0.5, Eosinophils # (Auto) 0.0, Basophils # (Auto) 0.0, Immature Granulocyte # (Auto) 0.0, Sodium Level 137, Potassium Level 3.7, Chloride Level 105, Carbon Dioxide Level 20L, Anion Gap 12, Blood Urea Nitrogen 12, Creatinine 1.37H, Estimat Glomerular Filtration Rate 51, BUN/Creatinine Ratio 9, Glucose Level 97, Calcium Level 10.5H, Phosphorus Level 3.4, Magnesium Level 2.0 Laboratory Tests 04/12/20 00:56 04/13/20 02:54 A/P: Assessment: 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 Malignant hypertension with SHANAE-1, and ECG and echo evidence of LVH - Echo on 04/11/20: Moderate, concentric LVH; LVEF 50%; mild MR, PASP 25-30 mmHg Minimally elevated troponin, likely Type 2 [place] due to uncontrolled hypertension Chronic smoker of cigarettes Plan: * Adjust meds, as needed, to control bp * The likely cause of her presentation with transient L arm weakness is the L MCA aneurysm. I have discussed this with Dr Hollins to whom she has been admitted. Our recommendation is transfer to a tertiary care facility for evaluation and treatment of this problem * Advised pt to be compliant with her bp meds and to quit smoking immediately and completely SEVERINO GOETZ MD FACP [facility] CCDS Apr 13, 2020 15:28
[2020-04-13] MEDS: ENOXAPARIN 40 MG/0.4 ML (LOVENOX) SYR SC SCH (20:18)
[2020-04-13] MEDS ORDERED: meTOprolol SUCCINATE 100 MG (TOPROL XL) TAB PO SCH (21:00)
[2020-04-14 03:52] LABS: CALCIUM 11.1 MG/DL (8.5-10.1); CREATININE SERUM 1.81 MG/DL (0.60-1.30); MAGNESIUM 2.3 MG/DL (1.6-2.4); POTASSIUM 3.9 MMOL/L (3.6-5.0)
[2020-04-14] MEDS: KCL 20 MEQ TAB (K-DUR) PO SCH (04:48)
[2020-04-14] MEDS ORDERED: LACTATED RINGERS 1,000 ML IV SCH (05:45)
--- NOTE | 2020-04-14 05:46 | Pulmonary Progress Note ---
Subjective Time Seen by a Provider: 05:42 Subjective/Events-last exam Pt is now off Cardene gtt Sepsis Event Evaluation Height, Weight, BMI Height: 5'3.00" Weight: 142lbs. 9.0oz. 64.225576qg; 26.56 BMI Method:Stated Exam Exam Vital Signs Date Time Temp Pulse Resp B/P (MAP) Pulse Ox O2 Delivery O2 Flow Rate FiO2 04/14/20 04:00 66 14 100 Room Air 04/14/20 04:00 100 Room Air 04/14/20 03:00 72 17 99 Room Air 04/14/20 02:00 80 15 97 Room Air 04/14/20 01:00 74 04/14/20 01:00 71 15 97 Room Air 04/14/20 00:00 100 Room Air 04/14/20 00:00 70 17 139/79 (99) 93 Room Air 04/13/20 23:00 70 13 96 Room Air 04/13/20 22:00 75 29 130/99 (109) 100 Room Air 04/13/20 21:00 75 21 135/87 (103) 100 Room Air 04/13/20 20:00 100 Room Air 04/13/20 20:00 71 22 138/83 (101) 100 Room Air 04/13/20 19:03 36.2 04/13/20 19:00 79 25 146/97 (113) 98 Room Air 04/13/20 19:00 80 04/13/20 18:00 76 32 141/75 (97) 100 Room Air 04/13/20 17:00 76 21 136/72 (93) 99 Room Air 04/13/20 16:00 76 31 163/95 (117) 100 Room Air 04/13/20 15:28 36.4 04/13/20 15:26 100 Room Air 04/13/20 15:00 75 73 142/91 (108) 99 Room Air 04/13/20 14:00 69 67 136/88 (104) 100 Room Air 04/13/20 13:00 68 19 158/93 (114) 100 Room Air 04/13/20 12:43 69 04/13/20 12:00 100 Room Air 04/13/20 12:00 68 30 145/90 (108) 100 Room Air 04/13/20 11:34 36.3 04/13/20 11:00 73 37 137/86 (103) 100 Room Air 04/13/20 10:00 73 19 141/105 (117) 100 Room Air 04/13/20 08:00 100 Room Air 04/13/20 08:00 76 27 154/100 (118) 99 Room Air 04/13/20 07:31 36.3 04/13/20 06:51 69 04/13/20 06:00 73 29 181/115 (137) 94 Room Air I & O 04/14/20 07:00 Intake Total 1340 ml Balance 1340 ml Height & Weight Height: 5'3.00" Weight: 142lbs. 9.0oz. 64.019111zd; 26.56 BMI Method:Stated General Appearance: No Apparent Distress, WD/WN HEENT: PERRL/EOMI, Pharynx Normal Neck: Normal Inspection, Supple Respiratory: Lungs Clear, Normal Breath Sounds, No Respiratory Distress Cardiovascular: Regular Rate, Rhythm, No Edema, No Murmur Capillary Refill: Less Than 3 Seconds Extremity: Normal Inspection, Non Tender, No Pedal Edema Neurologic/Psychiatric: Alert, Oriented x3, No Motor/Sensory Deficits, Normal Mood/Affect Skin: Normal Color, Warm/Dry Results Lab Laboratory Tests 04/13/20 02:54 04/14/20 03:15 Assessment/Plan Assessment/Plan HTN emergency -Cardene gtt -- is off -Continue Toprol and Norvasc -Hydralazine is off NSTEMI -Cardiology consulted Grade II diastolic dysfunction per echo Small cerebral aneurysm ARF -Monitor -Start LR at 75ml/hr medical noncompliance LD SMALL DO Apr 14, 2020 05:46
[2020-04-14] MEDS: hydrALAZINE (APRESOLINE) 25 MG TAB PO SCH ×2 (06:06→13:00)
--- NOTE | 2020-04-14 06:55 | Diagnostic Imaging Report ---
INDICATION: Hypertension, shortness of breath COMPARISON: 04/13/2020 FINDINGS: Single view chest demonstrates clear lungs bilaterally. The heart remains prominent. There is no pneumothorax. Osseous structures stable. IMPRESSION: Stable cardiac enlargement without pulmonary edema or acute infiltrate. Dictated by: Dictated on workstation # [id number]
[2020-04-14] MEDS: NICOTINE PATCH REMOVAL TP SCH (07:41)
[2020-04-14] MEDS: NICOTINE 14 MG (NICODERM) PATCH TD SCH (07:41)
[2020-04-14] MEDS: ASPIRIN 81 MG CHEW (CHILDREN'S ASA) PO SCH (07:41)
[2020-04-14] MEDS: meTOprolol SUCCINATE 100 MG (TOPROL XL) TAB PO SCH (07:41)
[2020-04-14] MEDS: amLODIPine 10 MG (NORVASC) TAB PO SCH (07:41)
[2020-04-14] MEDS: LOSARTAN 100 MG (COZAAR) TABLET PO SCH (07:41)
[2020-04-14] MEDS: HYDROCHLOROTHIAZIDE 25 MG (HCTZ) TAB PO SCH (07:41)
[2020-04-14] MEDS ORDERED: AMLO-251 PO (09:26)
[2020-04-14] MEDS ORDERED: HYDR-3923 PO (09:26)
[2020-04-14] MEDS ORDERED: ASPI81TA64 PO (09:26)
[2020-04-14] MEDS ORDERED: LOSA100T57 PO (09:26)
[2020-04-14] MEDS ORDERED: MTP100TCR PO (09:26)
[2020-04-14] MEDS ORDERED: HYDR25TA4 PO (09:26)
--- NOTE | 2020-04-14 09:49 | Progress Note - Cardiology ---
Cardiology SOAP Progress Note Subjective: Lying in bed States she is ready to go home No c/o CP, palpitations, SOB, syncope or near syncope No c/o arm numbness No c/o FLAHERTY Objective: I&O/Vital Signs 04/13/20 04/13/20 04/14/20 04/14/20 22:00 23:00 00:00 00:00 Pulse 75 70 70 Resp 29 13 17 B/P (MAP) 130/99 (109) 139/79 (99) Pulse Ox 100 96 93 100 O2 Delivery Room Air Room Air Room Air Room Air 04/14/20 04/14/20 04/14/20 04/14/20 01:00 01:00 02:00 03:00 Pulse 71 74 80 72 Resp 15 15 17 B/P (MAP) Pulse Ox 97 97 99 O2 Delivery Room Air Room Air Room Air 04/14/20 04/14/20 04/14/20 04/14/20 04:00 04:00 05:00 06:00 Pulse 66 67 70 Resp 14 18 13 B/P (MAP) 146/94 (111) 138/97 (111) 135/73 (93) Pulse Ox 100 100 99 100 O2 Delivery Room Air Room Air Room Air Room Air 04/14/20 04/14/20 04/14/20 04/14/20 07:00 07:47 08:00 08:03 Temp 36.8 Pulse 71 76 Resp 18 33 B/P (MAP) 134/89 (104) 159/104 (122) Pulse Ox 100 100 100 O2 Delivery Room Air Room Air Room Air 04/14/20 00:00 Intake Total 1040 ml Balance 1040 ml Weight (Pounds): 142 Weight (Ounces): 9.0 Weight (Calculated Kilograms): 64.577047 Constitutional: AAO x 3, well-developed, well-nourished Respiratory: other Cardiovascular: regular rate-rhythm, S1 and S2 Gastrointestional: soft, audible bowel sounds Extremities: No clubbing, No cyanosis, No significant edema Neurologic/Psychiatric: oriented x 3, other Skin: No rash on exposed areas, No ulcerations on exposed areas Results/Procedures: Labs Laboratory Tests 04/14/20 03:15: Sodium Level 134L, Potassium Level 3.9, Chloride Level 103, Carbon Dioxide Level 18L, Anion Gap 13, Blood Urea Nitrogen 17, Creatinine 1.81H, Estimat Glomerular Filtration Rate 37, BUN/Creatinine Ratio 9, Glucose Level 110H, Calcium Level 11.1H, Magnesium Level 2.3 Laboratory Tests 04/13/20 02:54 04/14/20 03:15 A/P: Assessment: 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 Malignant hypertension with SHANAE-1, and ECG and echo evidence of LVH - Echo on 04/11/20: Moderate, concentric LVH; LVEF 50%; mild MR, PASP 25-30 mmHg Minimally elevated troponin, likely Type 2 GA due to uncontrolled hypertension Chronic smoker of cigarettes Plan: * business services associate assisting with medication assistance * Continue current medication regimen * The likely cause of her presentation with transient L arm weakness is the L MCA aneurysm. I have discussed this with Dr Hollins to whom she has been admitted. Our recommendation is transfer to a tertiary care facility for evaluation and treatment of this problem * Advised pt to be compliant with her bp meds and to quit smoking immediately and completely * F/U in 2 weeks as out pt FAUSTO RICHARDSON Apr 14, 2020 09:49
--- NOTE | 2020-04-14 12:55 | Discharge Summary ---
Discharge Summary Hospital Course Was the Problem List Reviewed?: Yes Problems/Dx: (1) Hypertensive emergency Status: Acute (2) (HFpEF) heart failure with preserved ejection fraction Status: Acute (3) Elevated troponin Status: Acute (4) Brain aneurysm Status: Acute (5) Renal insufficiency Status: Acute (6) Tobacco abuse Status: Chronic Hospital Course Date of Admission: Apr 11, 2020 at 16:05 Admission Diagnosis : HTN emergency Family Physician/Provider: BrianaLocal Physician Date of Discharge: 04/14/20 Discharge Diagnosis: HTN emergency Hospital Course: Emmy Barry is a 45-year-old female with history of hypertension who presented with hypertensive emergency. She was started on IV Cardene and her blood pressures improved. Cardiology was consulted and assisted with her carearea she had a mildly elevated troponin on arrival which remained stable. She underwent an echocardiogram which revealed grade 2 diastolic dysfunction and she was diagnosed with heart failure with preserved ejection fraction. She was started on amlodipine, Toprol, hydrochlorothiazide, losartan, and hydralazine. Due to resistant hypertension, she did have to go back on the Cardene drip briefly. Her course is complicated by a newly diagnosed brain aneurysm. This was discussed with Dr. Kwok, neurosurgery at [facility], and they did not believe this to be an acute issue and she was instructed to follow up as an outpatient. We are assisting to set up an appointment at within the next week. We are also working to get her established at [facility] with a new PCP. Social work helped greatly with ensuring she would be able to get her medications and follow-up appointments. She should follow-up with cardiology in 2 weeks. She was instructed to quit smoking immediately. She was discharged home in stable condition. Labs and Pending Lab Test: Laboratory Tests 04/14/20 03:15: Sodium Level 134L, Potassium Level 3.9, Chloride Level 103, Carbon Dioxide Level 18L, Anion Gap 13, Blood Urea Nitrogen 17, Creatinine 1.81H, Estimat Glomerular Filtration Rate 37, BUN/Creatinine Ratio 9, Glucose Level 110H, Calcium Level 11.1H, Magnesium Level 2.3 Home Meds Active Hydrochlorothiazide 25 Mg Tablet 25 Mg PO DAILY 30 Days Children's Aspirin (Aspirin) 81 Mg Tab.chew 81 Mg PO DAILY@0900 30 Days Losartan Potassium 100 Mg Tablet 100 Mg PO DAILY 30 Days Amlodipine Besylate 10 Mg Tablet 10 Mg PO DAILY 30 Days Metoprolol Succinate 100 Mg Tab.er.24h 200 Mg PO DAILY 30 Days Hydralazine HCl 25 Mg Tablet 100 Mg PO Q8HR 30 Days Assessment/Pt Instructions Take medications as prescribed. Establish care with a primary care physician at the [facility]. Follow-up with neurosurgery at [facility]. Quit smoking immediately. Return with worsening headache, vision changes, numbness, or if you feel like you're getting worse. Discharge Planning: <30 minutes discharge planning Discharge Instructions Discharge Diet: Low Sodium Diet Activity as Tolerated: Yes Consultations Cardiology, Pulmonology Discharge Physical Examination Vital Signs Vital Signs Date Time Temp Pulse Resp B/P (MAP) Pulse Ox O2 Delivery O2 Flow Rate FiO2 04/14/20 12:08 36.8 04/14/20 11:16 100 Room Air 04/14/20 08:00 76 33 159/104 (122) General Appearance: No Apparent Distress, WD/WN Respiratory: Lungs Clear, Normal Breath Sounds, No Respiratory Distress Cardiovascular: Regular Rate, Rhythm, No Edema, No Murmur Gastrointestinal: Normal Bowel Sounds, Non Tender, Soft Extremity: Normal Inspection, Non Tender, No Pedal Edema Skin: Normal Color, Warm/Dry Neurologic/Psychiatric: Alert, Oriented x3, No Motor/Sensory Deficits, Normal Mood/Affect Allergies: Coded Allergies: lisinopril (Verified Allergy, Unknown, Angioedema, 04/11/20) Copy Copies To 1: [facility] [place] Summary Date of Admission Apr 11, 2020 at 16:05 Date of Discharge Discharge Date: Apr 14, 2020 Discharge Time: 12:54 Admission Diagnosis Hypertensive emergency Consults/Procedures Consulations cardiology, pulmonology Discharge Diagnosis HTN emergency (1) Hypertensive emergency Status: Acute (2) (HFpEF) heart failure with preserved ejection fraction Status: Acute (3) Elevated troponin Status: Acute (4) Brain aneurysm Status: Acute (5) Renal insufficiency Status: Acute (6) Tobacco abuse Status: Chronic ANA LEVY MD Apr 14, 2020 12:54
--- NOTE | 2020-04-14 13:47 | Progress Note - Cardiology ---
Cardiology SOAP Progress Note Subjective: No cp or palp or syncope or shortness of breath No recurrence of weakness No n/vd Objective: I&O/Vital Signs 04/14/20 04/14/20 04/14/20 04/14/20 02:00 03:00 04:00 04:00 Pulse 80 72 66 Resp 15 17 14 B/P (MAP) 146/94 (111) Pulse Ox 97 99 100 100 O2 Delivery Room Air Room Air Room Air Room Air 04/14/20 04/14/20 04/14/20 04/14/20 05:00 06:00 06:35 07:00 Pulse 67 70 72 71 Resp 18 13 18 B/P (MAP) 138/97 (111) 135/73 (93) 134/89 (104) Pulse Ox 99 100 100 O2 Delivery Room Air Room Air Room Air 04/14/20 04/14/20 04/14/20 04/14/20 07:47 08:00 08:03 11:16 Temp 36.8 Pulse 76 Resp 33 B/P (MAP) 159/104 (122) Pulse Ox 100 100 100 O2 Delivery Room Air Room Air Room Air 04/14/20 04/14/20 12:08 12:53 Temp 36.8 Pulse 65 04/13/20 23:59 Intake Total 1040 ml Balance 1040 ml Weight (Pounds): 142 Weight (Ounces): 9.0 Weight (Calculated Kilograms): 64.443162 Constitutional: AAO x 3, well-developed, well-nourished Respiratory: other Cardiovascular: regular rate-rhythm, S1 and S2 Gastrointestional: soft, audible bowel sounds Extremities: No clubbing, No cyanosis, No significant edema Neurologic/Psychiatric: oriented x 3, other Skin: No rash on exposed areas, No ulcerations on exposed areas Results/Procedures: Labs Laboratory Tests 04/14/20 03:15: Sodium Level 134L, Potassium Level 3.9, Chloride Level 103, Carbon Dioxide Level 18L, Anion Gap 13, Blood Urea Nitrogen 17, Creatinine 1.81H, Estimat Glomerular Filtration Rate 37, BUN/Creatinine Ratio 9, Glucose Level 110H, Calcium Level 11.1H, Magnesium Level 2.3 Laboratory Tests 04/13/20 02:54 04/14/20 03:15 A/P: Assessment: 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 Malignant hypertension with SHANAE-1, and ECG and echo evidence of LVH - Echo on 04/11/20: Moderate, concentric LVH; LVEF 50%; mild MR, PASP 25-30 mmHg Minimally elevated troponin, likely Type 2 MS due to uncontrolled hypertension Chronic smoker of cigarettes Plan: * industrial services worker assisting with medication assistance * Continue current medication regimen * The likely cause of her presentation with transient L arm weakness is the L MCA aneurysm. I have discussed this with Dr Hollins to whom she has been admitted. Our recommendations are given in our previous notes * Advised pt to be compliant with her bp meds and to quit smoking immediately and completely * Outpt f/u is advised SEVERINO GOETZ MD FACP FAC CCDS Apr 14, 2020 13:47
[2020-04-14 14:15] VITALS: BP 130/82
== END 2020-04-14 14:15 | disposition home or self-care (01) | DRG 281 ==
LOC: EDUNIT# 12:43 → ER 12:45 → ICU 16:05
PROVIDERS: ADMIT Internal Medicine; ATTEND Internal Medicine
DX: I16.1 Hypertensive emergency (principal); I21.A1 Myocardial infarction type 2; N17.9 Acute kidney failure, unspecified; I50.30 Unspecified diastolic (congestive) heart failure; I67.1 Cerebral aneurysm, nonruptured; I11.0 Hypertensive heart disease with heart failure; R29.898 Other symptoms and signs involving the musculoskeletal system; Z91.19 Patient's noncompliance with other medical treatment and regimen; I34.0 Nonrheumatic mitral (valve) insufficiency; F17.210 Nicotine dependence, cigarettes, uncomplicated; F41.9 Anxiety disorder, unspecified; F32.9 Major depressive disorder, single episode, unspecified
CPT/HCPCS: 36415; 70450; 70496; 70498; 71045; 80048; 80053; 80306; 80320; 81000; 82550; 82553; 83735; 83874; 83880; 84100; 84443; 84484; 84703; 85025; 85379; 85610; 85730; 93005; 93041; 93306

== ENCOUNTER 2020-04-18 11:40 | Emergency (ER) | payer MEDICAID ==
[~2020-04-18] VITALS: Ht 160 cm; Wt 65.7 kg
[~2020-04-18 11:40] MED LIST changes: +AMLO-251 PO; +ASPI81TA64 PO; +HYDR-3923 PO; +HYDR25TA4 PO; +LOSA100T57 PO; +MTP100TCR PO
--- NOTE | 2020-04-18 13:49 | ED General ---
General Chief Complaint: General Problems/Pain Stated Complaint: ABNORMAL LABS, RENAL FAIL Nursing Triage Note: pt reports high blood pressure. labs drawn saturday at [facility] came back abnormal. Nursing Sepsis Screen: No Definite Risk Source of Information: Patient Exam Limitations: No Limitations History of Present Illness Date Seen by Provider: Apr 18, 2020 Time Seen by Provider: 13:45 Initial Comments This is a 45-year-old female who presents to the ER per her primary care office for abnormal renal function test. Patient was recently hospitalized here and treated for hypertensive emergency. States she had follow-up labs today and was told to present to ER due to declining renal function. She currently has no physical complaints at this time. Allergies and Home Medications Allergies Coded Allergies: lisinopril (Verified Allergy, Unknown, Angioedema, 04/11/20) Home Medications Amlodipine Besylate 10 Mg Tablet, 10 MG PO DAILY Prescribed by: ANA LEVY on 04/14/20925 Aspirin 81 Mg Tab.chew, 81 MG PO DAILY@0900 Prescribed by: ANA LEVY on 04/14/20925 Hydralazine HCl 25 Mg Tablet, 100 MG PO Q8HR Prescribed by: ANA LEVY on 04/14/20925 Hydrochlorothiazide 25 Mg Tablet, 25 MG PO DAILY Prescribed by: ANA LEVY on 04/14/20925 Losartan Potassium 100 Mg Tablet, 100 MG PO DAILY Prescribed by: ANA LEVY on 04/14/20925 Metoprolol Succinate 100 Mg Tab.er.24h, 200 MG PO DAILY Prescribed by: ANA LEVY on 04/14/20925 Prazosin HCl 1 Mg Capsule, 1 MG PO BID Prescribed by: HARDY POTTER on 04/18/20 1610 Patient Home Medication List Home Medication List Reviewed: Yes Review of Systems Review of Systems Constitutional: no symptoms reported EENTM: no symptoms reported Respiratory: no symptoms reported Cardiovascular: no symptoms reported Gastrointestinal: no symptoms reported Genitourinary: no symptoms reported Musculoskeletal: no symptoms reported Skin: no symptoms reported Psychiatric/Neurological: No Symptoms Reported Hematologic/Lymphatic: No Symptoms Reported Immunological/Allergic: no symptoms reported Past Dypqzmp-Uifrne-Aedenw Hx Patient Social History Drug of Choice: DENIES Type Used: Cigarettes Recent Infectious Disease Expo: No Immunizations Up To Date Tetanus Booster (TDap): Unknown PED Vaccines UTD: Yes Past Medical History Surgeries: Yes ( X 4) Section Respiratory: No Currently Using CPAP: No Cardiac: Yes (QUIT TAKING MEDICATIONS YEARS AGO, PER PT 04/11/20) Hypertension Neurological: No Reproductive Disorders: No (PERIMENOPAUSAL) Female Reproductive Disorders: Denies Genitourinary: No Gastrointestinal: No Musculoskeletal: No Endocrine: No HEENT: No Cancer: No Psychosocial: Yes (DOES NOT TAKE ANY MEDICATIONS) Anxiety, Depression Integumentary: No Blood Disorders: No Physical Exam Vital Signs Vital Signs - First Documented 04/18/20 04/18/20 12:02 17:45 Temp 36.9 Pulse 75 Resp 14 B/P (MAP) 143/94 (110) Pulse Ox 98 O2 Delivery Room Air Capillary Refill : Less Than 3 Seconds Height, Weight, BMI Height: 5'3.00" Weight: 142lbs. 9.0oz. 64.586494sp; 25.00 BMI Method:Stated General Appearance: No Apparent Distress, WD/WN Eyes: Bilateral Eye Normal Inspection, Bilateral Eye PERRL, Bilateral Eye Abnormal EOM HEENT: PERRL/EOMI, Normal ENT Inspection, Pharynx Normal Neck: Full Range of Motion, Normal Inspection, Supple Respiratory: Lungs Clear, Normal Breath Sounds, No Accessory Muscle Use Cardiovascular: Regular Rate, Rhythm, No Edema, Normal Peripheral Pulses Gastrointestinal: Normal Bowel Sounds, Non Tender, Soft Back: Normal Inspection Extremity: Normal Inspection, Normal Range of Motion, No Calf Tenderness, No Pedal Edema Neurologic/Psychiatric: Alert, Oriented x3, No Motor/Sensory Deficits, Normal Mood/Affect Skin: Normal Color, Warm/Dry Focused Exam Lactate Level 04/18/20 15:10: Lactic Acid Level 1.81 Lactic Acid Level Progress/Results/Core Measures Suspected Sepsis Recent Fever Within 48 Hours: No Infection Criteria Present: None New/Unexplained Altered Menta: No Sepsis Screen: No Definite Risk SIRS Temperature: Pulse: 75 Respiratory Rate: 14 Laboratory Tests 04/18/20 15:10: White Blood Count 11.1H Blood Pressure 143 /94 Mean: 110 04/18/20 15:10: Lactic Acid Level 1.81 Laboratory Tests 04/18/20 15:10: Creatinine 2.21H, Platelet Count 456H, Total Bilirubin 0.3 Results/Orders Lab Results Laboratory Tests Test 04/18/20 14:46 04/18/20 15:10 Range/Units Urine Color YELLOW Urine Clarity SL CLOUDY Urine pH 5.5 5-9 Urine Specific [place] 1.020 1.016-1.022 Urine Protein NEGATIVE NEGATIVE Urine Glucose (UA) NEGATIVE NEGATIVE Urine Ketones NEGATIVE NEGATIVE Urine Nitrite NEGATIVE NEGATIVE Urine Bilirubin NEGATIVE NEGATIVE Urine Urobilinogen 0.2 < = 1.0 MG/DL Urine Leukocyte Esterase NEGATIVE NEGATIVE Urine RBC (Auto) NEGATIVE NEGATIVE Urine RBC NONE /HPF Urine WBC NONE /HPF Urine Squamous Epithelial Cells 10-25 H /HPF Urine Crystals NONE /LPF Urine Bacteria NEGATIVE /HPF Urine Casts NONE /LPF Urine Mucus NEGATIVE /LPF Urine Culture Indicated NO White Blood Count 11.1 H 4.3-11.0 10^3/uL Red Blood Count 5.24 H 3.80-5.11 10^6/uL Hemoglobin 15.1 11.5-16.0 g/dL Hematocrit 45 35-52 % Mean Corpuscular Volume 87 80-99 fL Mean Corpuscular Hemoglobin 29 25-34 pg Mean Corpuscular Hemoglobin Concent 33 32-36 g/dL Red Cell Distribution Width 13.7 10.0-14.5 % Platelet Count 456 H 130-400 10^3/uL Mean Platelet Volume 10.7 9.0-12.2 fL Immature Granulocyte % (Auto) 0 % Neutrophils (%) (Auto) 69 42-75 % Lymphocytes (%) (Auto) 24 12-44 % Monocytes (%) (Auto) 7 0-12 % Eosinophils (%) (Auto) 0 0-10 % Basophils (%) (Auto) 0 0-10 % Neutrophils # (Auto) 7.6 1.8-7.8 X 10^3 Lymphocytes # (Auto) 2.6 1.0-4.0 X 10^3 Monocytes # (Auto) 0.8 0.0-1.0 X 10^3 Eosinophils # (Auto) 0.0 0.0-0.3 10^3/uL Basophils # (Auto) 0.0 0.0-0.1 10^3/uL Immature Granulocyte # (Auto) 0.0 0.0-0.1 10^3/uL Sodium Level 135 135-145 MMOL/L Potassium Level 4.2 3.6-5.0 MMOL/L Chloride Level 98 98-107 MMOL/L Carbon Dioxide Level 24 21-32 MMOL/L Anion Gap 13 5-14 MMOL/L Blood Urea Nitrogen 27 H 7-18 MG/DL Creatinine 2.21 H 0.60-1.30 MG/DL Estimat Glomerular Filtration Rate 29 BUN/Creatinine Ratio 12 Glucose Level 92 70-105 MG/DL Lactic Acid Level 1.81 0.50-2.00 MMOL/L Calcium Level 11.4 H 8.5-10.1 MG/DL Corrected Calcium 8.5-10.1 MG/DL Total Bilirubin 0.3 0.1-1.0 MG/DL Aspartate Amino Transf (AST/SGOT) 24 5-34 U/L Alanine Aminotransferase (ALT/SGPT) 17 0-55 U/L Alkaline Phosphatase 93 40-136 U/L Total Creatine Kinase 92 29-168 U/L Myoglobin 61.7 10.0-92.0 NG/ML Total Protein 10.1 H 6.4-8.2 GM/DL Albumin 4.9 H 3.2-4.5 GM/DL My Orders Orders - HARDY POTTER HISTORY FACULTY MEMBER Cbc With Automated Diff (04/18/20 13:49) Comprehensive Metabolic Panel (04/18/20 13:49) Ua Culture If Indicated (04/18/20 13:49) Lactic Acid Analyzer (04/18/20 13:49) Myoglobin Serum (04/18/20 13:49) Creatine Kinase (04/18/20 13:49) Ns Iv 1000 Ml (Sodium Chloride 0.9%) (04/18/20 16:00) Medications Given in ED Current Medications Medications Dose Ordered Sig/Karishma Route Start Time Stop Time Status Last Admin Dose Admin Sodium Chloride 1,000 ml @ STK-MED ONCE .ROUTE 04/18/20 16:00 04/18/20 16:05 DC 04/18/20 16:18 1,000 MLS/HR Vital Signs/I&O 04/18/20 04/18/20 12:02 17:45 Temp 36.9 Pulse 75 68 Resp 14 18 B/P (MAP) 143/94 (110) 215/116 Pulse Ox 98 100 O2 Delivery Room Air Capillary Refill : Less Than 3 Seconds Blood Pressure Mean: 110 Progress Note : Progress Note Patient was examined and in no acute distress. She has no complaints or physical symptoms at this time. Reviewed her previous admission and new medications and renal function started declining after beginning hydroc hlorothiazide. I believe the hydrochlorothiazide and possibly losartan may be contributory towards her decline in renal function. Case was discussed with Dr. Ramires due to severe hypertension. Dr. Ramires recommended hydrating with fluids stopping losartan and hydrochlorothiazide and starting Minipress 1 mg twice daily. Patient is to have follow-up labs on Saturday which will be sent to her PCP office at [facility] for further evaluation. Discharge plan of care was reviewed with patient and her spouse they are both agreeable with the plan. At discharge her blood pressure was noted to be elevated, she stated she had not yet taken her 1500 hydralazine which she took right before discharge. All questions and concerns were addressed at this time. Departure Impression Primary Impression: Acute kidney injury Disposition: HOME, SELF-CARE Condition: Stable Departure-Patient Inst. Decision time for Depature: 16:07 Referrals: NO,LOCAL PHYSICIAN (PCP/Family) Primary Care Physician Patient Instructions: Acute Kidney Injury Add. Discharge Instructions: Plan: 1. Drink plenty of fluids. 2. Stop taking her hydrochlorothiazide and losartan. 3. You will start taking prazosin twice a day. Continue to monitor your blood pressure. 4. Follow-up on Saturday for repeat labs. Take lab requisition form with you. 5. Return to ER for any new or concerning symptom. All discharge instructions reviewed with patient and/or family. Voiced understanding. Scripts Prazosin HCl (Prazosin HCl) 1 Mg Capsule 1 MG PO BID for 30 Days, #60 CAP 0 Refills Prov: HARDY POTTER APRN 04/18/20 Copy Copies To 1: TYREE MARTINEZ STORMY D HISTORY FACULTY MEMBER Apr 18, 2020 13:49
[2020-04-18 15:02] LABS: BILIRUBIN,URINE NEGATIVE (NEGATIVE); CLARITY,URINE SL CLOUDY; COLOR,URINE YELLOW; GLUCOSE, URINE (UA) NEGATIVE (NEGATIVE); KETONES,URINE NEGATIVE (NEGATIVE); LEUKOCYTE ESTERASE ,URINE NEGATIVE (NEGATIVE); NITRITE,URINE NEGATIVE (NEGATIVE); PH,URINE 5.5 (5-9); PROTEIN,URINE NEGATIVE (NEGATIVE)
[2020-04-18 15:10] LABS: BACTERIA,URINE NEGATIVE /HPF
[2020-04-18 15:27] LABS: ALBUMIN 4.9 GM/DL (3.2-4.5); CHLORIDE 98 MMOL/L (98-107); POTASSIUM 4.2 MMOL/L (3.6-5.0); SODIUM 135 MMOL/L (135-145)
[2020-04-18 15:29] LABS: CALCIUM 11.4 MG/DL (8.5-10.1)
[2020-04-18 15:30] LABS: GLUCOSE 92 MG/DL (70-105); TOTAL PROTEIN 10.1 GM/DL (6.4-8.2)
[2020-04-18 15:31] LABS: BASOPHILS % (AUTO) 0 % (0-10); CARBON DIOXIDE 24 MMOL/L (21-32); EOSINOPHILS % (AUTO) 0 % (0-10); HEMATOCRIT 45 % (35-52); HEMOGLOBIN 15.1 g/dL (11.5-16.0); LYMPHOCYTES # (AUTO) 2.6 X 10^3 (1.0-4.0); LYMPHOCYTES % (AUTO) 24 % (12-44); MEAN CORPUSCULAR HEMOGLOBIN 29 pg (25-34); MEAN CORPUSCULAR HGB CONC 33 g/dL (32-36); MEAN CORPUSCULAR VOLUME 87 fL (80-99); MEAN PLATELET VOLUME 10.7 fL (9.0-12.2); MONOCYTES # (AUTO) 0.8 X 10^3 (0.0-1.0); MONOCYTES % (AUTO) 7 % (0-12); NEUTROPHILS # (AUTO) 7.6 X 10^3 (1.8-7.8); NEUTROPHILS % (AUTO) 69 % (42-75); PLATELET COUNT 456 10^3/uL (130-400); WHITE BLOOD COUNT 11.1 10^3/uL (4.3-11.0)
[2020-04-18 15:32] LABS: BILIRUBIN,TOTAL 0.3 MG/DL (0.1-1.0)
[2020-04-18 15:33] LABS: ALKALINE PHOSPHATASE 93 U/L (40-136)
[2020-04-18 15:34] LABS: CREATININE SERUM 2.21 MG/DL (0.60-1.30); GFR ESTIMATED 29
[2020-04-18 15:35] LABS: BUN/CREATININE RATIO 12
[2020-04-18 15:36] LABS: ALANINE AMINOTRANSFERASE 17 U/L (0-55); CREATINE KINASE 92 U/L (29-168)
[2020-04-18] MEDS ORDERED: NS IV 1000 ML 1,000 ML ONE (16:00)
[2020-04-18] MEDS ORDERED: PRAZ1CAP2 PO (16:10)
[2020-04-18 17:45] VITALS: BP 215/116
== END 2020-04-18 17:45 | disposition home or self-care (01) ==
LOC: EDUNIT# 11:40 → ER 11:41
DX: N17.9 Acute kidney failure, unspecified (principal); I10 Essential (primary) hypertension; Z88.8 Allergy status to other drugs, medicaments and biological substances; Z79.82 Long term (current) use of aspirin
CPT/HCPCS: 36415; 80053; 81000; 82550; 83605; 83874; 85025

== ENCOUNTER 2020-04-19 10:57 | Emergency (ER) | payer MEDICAID ==
[~2020-04-19] VITALS: Ht 165 cm; Wt 65.0 kg
[~2020-04-19 10:57] MED LIST changes: +PRAZ1CAP2 PO
[2020-04-19 11:00] VITALS: BP 153/84
--- NOTE | 2020-04-19 11:27 | ED General ---
General Chief Complaint: General Problems/Pain Stated Complaint: MEDICATION SIDE EFFECTS Nursing Triage Note: ARRIVED VIA AMB TO ROOM 07. STATES SHE WAS STARTED ON PRAZOSSIN YESTERDAY. AFTER TAKING HER FIRST DOSE AT 1800 YESTERDAY SHE STARTED HAVING HEAVINESS ON THE LEFT SIDE OF HER FACE. STATES THE LEFT SIDE OF HER FACE FEELS LIKE IT IS MELTING AWAY. HAS TAKEN A TOTAL OF X2 DOSES OF THIS. Nursing Sepsis Screen: No Definite Risk Source of Information: Patient Exam Limitations: No Limitations History of Present Illness Date Seen by Provider: Apr 19, 2020 Time Seen by Provider: 11:04 Initial Comments Patient presents ER by private conveyance from home with chief complaint she is having a adverse reaction to her new blood pressure medication she started taking yesterday. She does not have a primary care doctor but she had labs done outpatient and was called and told that they looked poor and she needed to go to the ER to be checked out. She had acute kidney injury and it was felt that her losartan and hydrochlorothiazide were probably contributing to this. These medications were held and she was started on prazosin. She is already on metoprolol 100 mg and amlodipine 10 mg. Patient says her blood pressure has been very well controlled. When she took the first dose of the prazosin last night she started having some pressure/odd feeling in her left arm and leg. She is not having any numbness just some [id number] occasionally. No weakness. No history of stroke. Patient took another dose of her prednisone this morning and her symptoms came back. She is not having cough fever chills shortness of breath Allergies and Home Medications Allergies Coded Allergies: lisinopril (Verified Allergy, Unknown, Angioedema, 04/11/20) Home Medications Amlodipine Besylate 10 Mg Tablet, 10 MG PO DAILY Prescribed by: ANA LEVY on 04/14/20925 Aspirin 81 Mg Tab.chew, 81 MG PO DAILY@0900 Prescribed by: ANA LEVY on 04/14/20925 Hydralazine HCl 25 Mg Tablet, 100 MG PO Q8HR Prescribed by: ANA LEVY on 04/14/20925 Hydrochlorothiazide 25 Mg Tablet, 25 MG PO DAILY Prescribed by: ANA LEVY on 04/14/20925 Losartan Potassium 100 Mg Tablet, 100 MG PO DAILY Prescribed by: ANA LEVY on 04/14/20925 Metoprolol Succinate 100 Mg Tab.er.24h, 200 MG PO DAILY Prescribed by: ANA LEVY on 04/14/20 0906 Prazosin HCl 1 Mg Capsule, 1 MG PO BID Prescribed by: HARDY POTTER on 04/18/20 1610 Patient Home Medication List Home Medication List Reviewed: Yes Review of Systems Review of Systems Constitutional: No chills, No diaphoresis EENTM: No ear discharge, No ear pain Respiratory: No cough, No short of breath Cardiovascular: No chest pain, No edema, No Hx of Intervention, No palpitations Gastrointestinal: No abdominal pain, No nausea, No vomiting Genitourinary: No discharge, No dysuria All Other Systems Reviewed Negative Unless Noted: Yes Past Ibnvdsq-Umgeeo-Pdampi Hx Patient Social History Alcohol Use: Denies Use Drug of Choice: DENIES Smoking Status: Current Everyday Smoker Type Used: Cigarettes Recent Infectious Disease Expo: No Immunizations Up To Date Tetanus Booster (TDap): Unknown PED Vaccines UTD: Yes Past Medical History Surgeries: Yes ( X 4) Section Respiratory: No Currently Using CPAP: No Cardiac: Yes (QUIT TAKING MEDICATIONS YEARS AGO, PER PT 04/11/20) Hypertension Neurological: No Reproductive Disorders: No (PERIMENOPAUSAL) Female Reproductive Disorders: Denies Genitourinary: No Gastrointestinal: No Musculoskeletal: No Endocrine: No HEENT: No Cancer: No Psychosocial: Yes (DOES NOT TAKE ANY MEDICATIONS) Anxiety, Depression Integumentary: No Blood Disorders: No Physical Exam Vital Signs Vital Signs - First Documented 04/19/20 11:00 Temp 35.8 Pulse 68 Resp 18 B/P (MAP) 153/84 (107) Pulse Ox 96 O2 Delivery Room Air Capillary Refill : Less Than 3 Seconds Height, Weight, BMI Height: 5'3.00" Weight: 142lbs. 9.0oz. 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 The patient's sensation is intact. She is neurologically intact. She has some paresthesias that started up with the first and second dose of prazosin so this is likely the source of her side effect. I have advised her to stop taking the prazosin and continue taking her amlodipine and metoprolol which she has tolerated very well. Her blood pressure is 130/70. We are going to check her blood pressure couple more times and if it stays normal we will let her go home and have her establish with a primary care doctor at [facility] which was already her plan in the next week or 2 to have labs redrawn and recheck her blood pressure. We did offer to repeat blood work today but she declined to repeat blood work today. ECG Initial ECG Impression Date: Apr 19, 2020 Initial ECG Impression Time: 11:10 Initial ECG Rate: 61 Initial ECG Rhythm: Normal Sinus Initial ECG Intervals: Normal Initial ECG Impression: Normal Comment Normal sinus rhythm with LVH. No clinically relevant ST changes. Departure Impression Primary Impression: Adverse effects of medication Qualified Codes: T50.905A - Adverse effect of unspecified drugs, medicaments and biological substances, initial encounter Additional Impressions: Left leg paresthesias Arm paresthesia, left Disposition: 01 HOME, SELF-CARE Condition: Stable Departure-Patient Inst. Decision time for Depature: 11:26 Referrals: NO,LOCAL PHYSICIAN (PCP/Family) Primary Care Physician Patient Instructions: Dealing with Constipation from the Drugs You Take, LOCAL PHYSICIAN LIST Add. Discharge Instructions: Stop taking the prazosin. Continue taking the other medications that are prescribed such as the metoprolol and amlodipine. Make a follow-up appointment with a primary care physician in the next 1 to 2 weeks and have your blood rechecked to assess your kidney function as well as your blood pressure rechecked. Return to the ER if you are having weakness, complete numbness or other new, worrisome symptoms. The symptoms should resolve over the next day or 2. All discharge instructions reviewed with patient and/or family. Voiced understanding. Work/School Note: Work Release Form Date Seen in the Emergency Department: Apr 19, 2020 Return to Work: Apr 20, 2020 Restrictions: No Restrictions STANTON RESTREPO Apr 19, 2020 11:26
== END 2020-04-19 11:30 | disposition home or self-care (01) ==
LOC: EDUNIT# 10:57 → ER 10:58
DX: R20.2 Paresthesia of skin (principal); T44.6X5A Adverse effect of alpha-adrenoreceptor antagonists, initial encounter; F41.9 Anxiety disorder, unspecified; I10 Essential (primary) hypertension; F17.210 Nicotine dependence, cigarettes, uncomplicated; Z88.8 Allergy status to other drugs, medicaments and biological substances; Z79.82 Long term (current) use of aspirin
CPT/HCPCS: 93005; 99281

== ENCOUNTER 2020-04-20 09:17 | Day surgery (SDC) | payer MEDICAID ==
[~2020-04-20] VITALS: Ht 160 cm; Wt 68.3 kg
[2020-04-20] MEDS ORDERED: NITROGLYCERIN 0.4 MG SL TABS BTL 25'S SL ONE ×2 (09:39→09:45)
[2020-04-20] MEDS ORDERED: ASPIRIN 81 MG CHEW (CHILDREN'S ASA) ONE (09:39)
[2020-04-20] MEDS ORDERED: ASPIRIN 81 MG CHEW (CHILDREN'S ASA) PO ONE (09:45)
[2020-04-20 09:47] LABS: BASOPHILS % (AUTO) 0 % (0-10); EOSINOPHILS % (AUTO) 0 % (0-10); HEMATOCRIT 41 % (35-52); HEMOGLOBIN 13.6 g/dL (11.5-16.0); LYMPHOCYTES # (AUTO) 2.6 10^3/uL (1.0-4.0); LYMPHOCYTES % (AUTO) 30 % (12-44); MEAN CORPUSCULAR HEMOGLOBIN 29 pg (25-34); MEAN CORPUSCULAR HGB CONC 33 g/dL (32-36); MEAN CORPUSCULAR VOLUME 87 fL (80-99); MEAN PLATELET VOLUME 10.6 fL (9.0-12.2); MONOCYTES # (AUTO) 0.4 10^3/uL (0.0-1.0); MONOCYTES % (AUTO) 5 % (0-12); NEUTROPHILS # (AUTO) 5.5 10^3/uL (1.8-7.8); NEUTROPHILS % (AUTO) 65 % (42-75); PLATELET COUNT 420 10^3/uL (130-400); WHITE BLOOD COUNT 8.5 10^3/uL (4.3-11.0)
--- NOTE | 2020-04-20 09:50 | ED Chest Pain ---
General Chief Complaint: Chest Wall Stated Complaint: CP Source: patient, old records Exam Limitations: no limitations History of Present Illness Date Seen by Provider: Apr 20, 2020 Time Seen by Provider: 09:35 Initial Comments Patient is a 45-year-old female who presents to the emergency department today with a chief complaint of chest tightness. Onset this morning around 8 AM after taking her morning medications. Patient has a fairly complex medical history and that over the course of the last 3 weeks she has had a hospitalization for hypertensive emergency/malignant hypertension and several ER visits related to possible side effects to her antihypertensive medications. Patient was seen and evaluated by cardiology in the hospital earlier in the month and was thought to have had a "type II PR" secondary to her hypertensive emergency. Patient was incidentally found to have an M2 cerebral aneurysm. These findings were discussed with neurology who felt that the patient was stable for outpatient follow-up. Patient is noted to have an acute increase in her serum creatinine on April 18. This is being followed closely by [facility]. Patient has continued to have left arm and shoulder discomfort, she states that it feels weak secondary to the pain in her arm. She describes chest "tightness and pressure". She states she feels short of breath. She has not had nausea or diaphoresis. Patient denies any recent illnesses such as fevers, chills, productive cough. No swelling in her lower extremities. No other GI or symptoms. Patient has quit smoking since her discharge from the hospital. She is in quite a bit of distress related to her chest discomfort at this time. She cannot quantify the pain. All other review of systems reviewed and negative except as stated above. Timing/Duration: 1-3 hours Severity/Quality: severe, aching Location: central, shoulder, back Radiation: shoulders Modifying Factors: improves with exercise ASA po SUPERVISOR ENGRAVING: No NTG SL SUPERVISOR ENGRAVING: No Associated Symptoms: back pain (left posterior shoulder) Allergies and Home Medications Allergies Coded Allergies: lisinopril (Verified Allergy, Unknown, Angioedema, 04/11/20) Home Medications Amlodipine Besylate 10 Mg Tablet, 10 MG PO DAILY Prescribed by: AAN LEVY on 04/14/20925 Aspirin 81 Mg Tab.chew, 81 MG PO DAILY@0900 Prescribed by: ANA LEVY on 04/14/20925 Hydralazine HCl 25 Mg Tablet, 100 MG PO Q8HR Prescribed by: ANA LEVY on 04/14/20925 Hydrochlorothiazide 25 Mg Tablet, 25 MG PO DAILY Prescribed by: ANA LEVY on 04/14/20925 Losartan Potassium 100 Mg Tablet, 100 MG PO DAILY Prescribed by: ANA LEVY on 04/14/20925 Metoprolol Succinate 100 Mg Tab.er.24h, 200 MG PO DAILY Prescribed by: ANA LEVY on 04/14/20925 Prazosin HCl 1 Mg Capsule, 1 MG PO BID Prescribed by: HARDY POTTER on 04/18/20 1610 Patient Home Medication List Home Medication List Reviewed: Yes Review of Systems Review of Systems Constitutional: see HPI EENTM: No Symptoms Reported Respiratory: SOA With Exertion Cardiovascular: Chest Pain Gastrointestinal: No Symptoms Reported Genitourinary: No Symptoms Reported Musculoskeletal: no symptoms reported Skin: no symptoms reported Psychiatric/Neurological: Anxiety All Other Systems Reviewed Negative Unless Noted: Yes Past Bxoktzv-Ermyev-Pkozss Hx Patient Social History Drug of Choice: DENIES Type Used: Cigarettes Immunizations Up To Date Tetanus Booster (TDap): Unknown PED Vaccines UTD: Yes Past Medical History Surgeries: Yes ( X 4) Section Respiratory: No Currently Using CPAP: No Cardiac: Yes (QUIT TAKING MEDICATIONS YEARS AGO, PER PT 04/11/20) Hypertension Neurological: No Reproductive Disorders: No (PERIMENOPAUSAL) Female Reproductive Disorders: Denies Genitourinary: No Gastrointestinal: No Musculoskeletal: No Endocrine: No HEENT: No Cancer: No Psychosocial: Yes (DOES NOT TAKE ANY MEDICATIONS) Anxiety, Depression Integumentary: No Blood Disorders: No Physical Exam Vital Signs Vital Signs - First Documented 04/20/20 04/20/20 09:17 11:17 Temp 39.7 Pulse 83 Resp 18 B/P (MAP) 201/120 (147) Pulse Ox 100 O2 Delivery Room Air Capillary Refill : Height, Weight, BMI Height: 5'3.00" Weight: 142lbs. 9.0oz. 64.138575ic; 23.00 BMI Method:Stated General Appearance: WD/WN, Anxious HEENT: PERRL/EOMI Neck: Full Range of Motion Respiratory: Lungs Clear, Normal Breath Sounds, No Accessory Muscle Use, No Respiratory Distress Cardiovascular: Regular Rate, Rhythm, Systolic Murmur Gastrointestinal: Non Tender, Soft Extremity: Normal Capillary Refill, Normal Range of Motion, Non Tender, No Calf Tenderness, No Pedal Edema Neurologic/Psychiatric: Alert, Oriented x3, No Motor/Sensory Deficits, Normal Mood/Affect Skin: Normal Color, Warm/Dry Progress/Results/Core Measures Results/Orders Lab Results Laboratory Tests Test 04/20/20 09:37 04/20/20 10:00 Range/Units White Blood Count 8.5 4.3-11.0 10^3/uL Red Blood Count 4.72 3.80-5.11 10^6/uL Hemoglobin 13.6 11.5-16.0 g/dL Hematocrit 41 35-52 % Mean Corpuscular Volume 87 80-99 fL Mean Corpuscular Hemoglobin 29 25-34 pg Mean Corpuscular Hemoglobin Concent 33 32-36 g/dL Red Cell Distribution Width 13.3 10.0-14.5 % Platelet Count 420 H 130-400 10^3/uL Mean Platelet Volume 10.6 9.0-12.2 fL Immature Granulocyte % (Auto) 1 % Neutrophils (%) (Auto) 65 42-75 % Lymphocytes (%) (Auto) 30 12-44 % Monocytes (%) (Auto) 5 0-12 % Eosinophils (%) (Auto) 0 0-10 % Basophils (%) (Auto) 0 0-10 % Neutrophils # (Auto) 5.5 1.8-7.8 10^3/uL Lymphocytes # (Auto) 2.6 1.0-4.0 10^3/uL Monocytes # (Auto) 0.4 0.0-1.0 10^3/uL Eosinophils # (Auto) 0.0 0.0-0.3 10^3/uL Basophils # (Auto) 0.0 0.0-0.1 10^3/uL Immature Granulocyte # (Auto) 0.0 0.0-0.1 10^3/uL Sodium Level 134 L 135-145 MMOL/L Potassium Level 2.9 L 3.6-5.0 MMOL/L Chloride Level 100 98-107 MMOL/L Carbon Dioxide Level 20 L 21-32 MMOL/L Anion Gap 14 5-14 MMOL/L Blood Urea Nitrogen 19 H 7-18 MG/DL Creatinine 1.82 H 0.60-1.30 MG/DL Estimat Glomerular Filtration Rate 36 BUN/Creatinine Ratio 10 Glucose Level 190 H 70-105 MG/DL Calcium Level 10.4 H 8.5-10.1 MG/DL Total Creatine Kinase 88 29-168 U/L Creatine Kinase MB 1.2 <6.6 NG/ML Troponin I 0.076 H <0.028 NG/ML My Orders Orders - JAYLEN LR MD Ed Iv/Invasive Line Start (04/20/20 09:41) Cbc With Automated Diff (04/20/20 09:41) Basic Metabolic Panel (04/20/20 09:41) Creatine Kinase (04/20/20 09:41) Creatine Kinase Mb (04/20/20 09:41) Troponin I (04/20/20 09:41) Aspirin Chewable Tablet (Baby Aspirin Ch (04/20/20 09:45) Nitroglycerin 0.4 Mg Btl 25's (Nitrostat (04/20/20 09:45) Ekg Tracing (04/20/20 09:41) Chest 1 View, Ap/Pa Only (04/20/20 09:41) Nitroglycerin 0.4 Mg Btl 25's (Nitrostat (04/20/20 09:39) Aspirin Chewable Tablet (Baby Aspirin Ch (04/20/20 09:39) Lidocaine 1% Inj 20 Ml (Xylocaine 1% Inj (04/20/20 12:02) Heparin (Staff Development Educator) (Heparin (Staff Development Educator)) (04/20/20 12:02) Hemoglobin A1c (04/20/20 12:29) Medications Given in ED Current Medications Medications Dose Ordered Sig/Karishma Route Start Time Stop Time Status Last Admin Dose Admin Aspirin 324 mg ONCE ONCE PO 04/20/20 09:45 04/20/20 09:46 DC 04/20/20 09:46 324 MG Nitroglycerin 1 BOTTLE ONCE ONCE SL 04/20/20 09:45 04/20/20 09:46 DC 04/20/20 09:46 0.4 MG Vital Signs/I&O 04/20/20 04/20/20 09:17 11:17 Temp 39.7 Pulse 83 69 Resp 18 18 B/P (MAP) 201/120 (147) 136/87 (103) Pulse Ox 100 96 O2 Delivery Room Air Initial ECG Impression Date: Apr 20, 2020 Initial ECG Impression Time: 09:20 Initial ECG Rate: 95 Initial ECG Rhythm: Normal Sinus Initial ECG Impression: Nonspecific Changes Comment ST segment depression with inverted T waves noted in leads I and aVL, [address] segment elevation in lead aVR, biphasic P wave in lead V1 consistent with left atrial enlargement; all of these findings are similar to previous EKG Diagnostic Imaging Diagonstic Imaging: Xray Plain Films/CT/US/NM/MRI: chest Comments [facility]. [place], [place] NAME: MIHAI PETER [facility] REC#: [id number] PT STATUS: REG ER : 1975 PHYSICIAN: JAYLEN LR MD ADMIT DATE: 04/20/20/ER Draft Date of Exam:04/20/20 CHEST 1 VIEW, AP/PA ONLY Indication: Chest pain Portable chest 9:45 AM Heart size and pulmonary vascularity are normal. Lungs are clear. There are no effusions or pneumothoraces. IMPRESSION: Negative chest. Dictated on workstation # [id number] Dict: 04/20/20 0953 Trans: 04/20/[address] [facility] [id number] Interpreted by: LETICIA ESPARZA MD Electronically signed by: Departure Communication (Admissions) Time/Spoke to Admitting Phy: 12:[address] yuen who accepts the patient for admission Time/Spoke to Consulting Phy: 11:[address] Paniagua, request the patient be kept n.p.o. and he will take her to the Staff Development Educator within the next 2 to 3 hours Impression Primary Impression: Malignant hypertension Additional Impressions: Chest pain Qualified Codes: I25.9 - Chronic ischemic heart disease, unspecified Elevated troponin Disposition: ADMITTED INPATIENT Condition: Stable Admissions Decision to Admit Reason: Admit from ER (General) Decision to Admit/Date: Apr 20, 2020 Time/Decision to Admit Time: 12:22 Departure-Patient Inst. Referrals: NO,LOCAL PHYSICIAN (PCP/Family) Primary Care Physician JAYLEN LR MD Apr 20, 2020 09:50
--- NOTE | 2020-04-20 09:54 | Diagnostic Imaging Report ---
Indication: Chest pain Portable chest 9:45 AM Heart size and pulmonary vascularity are normal. Lungs are clear. There are no effusions or pneumothoraces. IMPRESSION: Negative chest. Dictated by: Dictated on workstation # [id number]
[2020-04-20 10:26] LABS: POTASSIUM 2.9 MMOL/L (3.6-5.0)
[2020-04-20 10:27] LABS: CALCIUM 10.4 MG/DL (8.5-10.1)
[2020-04-20 10:31] LABS: CREATININE SERUM 1.82 MG/DL (0.60-1.30)
[2020-04-20 10:40] LABS: CREATINE KINASE MB 1.2 NG/ML (<6.6)
[2020-04-20] MEDS ORDERED: HEParin (CATH LAB) 2,000 ML IV ONE (12:02)
[2020-04-20] MEDS ORDERED: LIDOCAINE 1% INJ 20 ML 20 ML VIAL ONE (12:02)
[2020-04-20] MEDS ORDERED: fentaNYL INJECTION 100 MCG/2 ML AMP ONE (12:38)
[2020-04-20] MEDS ORDERED: MIDAZOLAM 5 MG/5 ML (VERSED) VIAL ONE (12:38)
--- NOTE | 2020-04-20 13:13 | Short Stay Summary-Hospitalist ---
History of Present Illness HPI/Chief Complaint CC: Chest Pain with malignant HTN HPI: This is a 38yo female with a hx of HTN and intolerance to BP medication who presents for the 4th time to the ER with elevated BP, chest pain, and slightly elevated troponin. Pt was found to be in need of cardiac catheterization by Dr. Moreira who saw her at the bedside and currently her BP is much improved after being given Aspirin and Nitroglycerine when she presented she was 220/110 and now she is 150/97. Her is at the bedside. Source: patient, RN/MD Exam Limitations: clinical condition Date Seen 04/20/20 Time Seen by a Provider: 12:00 Attending Physician Hellen Moreira MD PCP No,Local Physician Referring Physician Date of Admission Home Medications & Allergies Home Medications Reviewed patient Home Medication Reconciliation performed by pharmacy medication reconciliations application support technician and/or nursing. Patients Allergies have been reviewed. Allergies Allergies Coded Allergies lisinopril (Verified Allergy, Unknown, Angioedema, 04/11/20) Past Dtaohpp-Tlkigg-Gvjtch Hx Past Med/Social Hx: Reviewed Nursing Past Med/Soc Hx, Reviewed and Corrections made Patient Social History Marrital Status: Employed/Student: unemployed Alcohol Use: Denies Use Recreational Drug Use: No Drug of Choice: DENIES Smoking Status: Current Everyday Smoker Type Used: Cigarettes Recent Foreign Travel: No Contact w/other who traveled: No Recent Infectious Disease Expo: No Immunizations Up To Date Tetanus Booster (TDap): Unknown Pediatric: Yes Past Medical History Surgeries: Section Currently Using CPAP: No Cardiac: Hypertension Reproductive: No (PERIMENOPAUSAL) Female Reproductive Disorders: Denies Psychosocial: Anxiety, Depression History of Blood Disorders: No Review of Systems Constitutional: see HPI, malaise, weakness Cardiovascular: chest pain Physical Exam Physical Exam Vital Signs Vital Signs - First Documented 04/20/20 04/20/20 09:17 11:17 Temp 39.7 Pulse 83 Resp 18 B/P (MAP) 201/120 (147) Pulse Ox 100 O2 Delivery Room Air Capillary Refill : Less Than 3 Seconds Height, Weight, BMI Height: 5'3.00" Weight: 142lbs. 9.0oz. 64.109437ea; 25.00 BMI Method:Stated General Appearance: WD/WN, Anxious HEENT: PERRL/EOMI Neck: Full Range of Motion Respiratory: Lungs Clear, Normal Breath Sounds, No Accessory Muscle Use, No Respiratory Distress Cardiovascular: Regular Rate, Rhythm, Systolic Murmur Gastrointestinal: Non Tender, Soft Extremity: Normal Capillary Refill, Normal Range of Motion, Non Tender, No Calf Tenderness, No Pedal Edema Neurologic/Psychiatric: Alert, Oriented x3, No Motor/Sensory Deficits, Normal Mood/Affect Skin: Normal Color, Warm/Dry Results Results/Procedures Labs Laboratory Tests 04/20/20 09:37 04/20/20 10:00 04/21/20 03:28 Patient resulted labs reviewed. Short Stay Diagnosis Discharge Diagnosis-Short Stay Admission Diagnosis Chest pain Malignant HTN Smoker Final Discharge Diagnosis Chest pain Malignant HTN Smoker Conclusion Plan Plan: Cardiac cath Clinical Quality Measures AMI/AHF: ASA po Prior to arrival: SHAKIRA Irizarry DO Apr 20, 2020 13:13
[2020-04-20] MEDS ORDERED: NS IV 1000 ML 1,000 ML ONE (13:14)
--- NOTE | 2020-04-20 13:16 | Consultation-Cardiology ---
HPI-Cardiology Cardiology Consultation Date of Consultation 04/20/20 Date of Admission Time Seen by Provider: 13:15 Indication: chest pain HPI 45-year-old lady with history of malignant hypertension, hospitalized on April 10, 2020 with malignant hypertension and left arm weakness and mild elevation in troponin. Patient return to the emergency room today with elevated troponin and chest pain. No acute EKG changes. Blood pressure was elevated again. On my evaluation she was feeling somewhat better, we discussed management plan, this is her second admission with elevation troponin, I will proceed with coronary angiogram and evaluate her renal arteries. Home Medications & Allergies Allergies: Coded Allergies: lisinopril (Verified Allergy, Unknown, Angioedema, 04/11/20) Home Medication List Reviewed: Yes IQE-Szfljt-Zoeiia Hx Patient Social History Marital Status: Recreational Drug Use: No Drug of Choice: DENIES Smoking Status: Current Everyday Smoker Type Used: Cigarettes Immunizations Up To Date Tetanus Booster (TDap): Unknown Past Medical History Discussed below Family Medical History Family Medical Hx Noncontributory Review of Systems-General Review of Systems Constitutional: see HPI, malaise EENTM: see HPI, no symptoms reported Respiratory: see HPI; No cough, No dyspnea on exertion, No hemoptysis, No orthopnea, No phlegm, No short of breath, No stridor, No wheezing, No other Cardiovascular: see HPI, chest pain; No edema, No Hx of Intervention, No palpitations, No syncope, No vascular heart diseas, No other Gastrointestinal: no symptoms reported, see HPI Genitourinary: no symptoms reported, see HPI Musculoskeletal: no symptoms reported Skin: no symptoms reported Psychiatric/Neurological: Anxiety All Other Systems Reviewed Negative Unless Noted: Yes Reviewed Test Results Reviewed Test Results Lab Laboratory Tests Test 04/20/20 09:37 04/20/20 10:00 Range/Units White Blood Count 8.5 4.3-11.0 10^3/uL Red Blood Count 4.72 3.80-5.11 10^6/uL Hemoglobin 13.6 11.5-16.0 g/dL Hematocrit 41 35-52 % Mean Corpuscular Volume 87 80-99 fL Mean Corpuscular Hemoglobin 29 25-34 pg Mean Corpuscular Hemoglobin Concent 33 32-36 g/dL Red Cell Distribution Width 13.3 10.0-14.5 % Platelet Count 420 H 130-400 10^3/uL Mean Platelet Volume 10.6 9.0-12.2 fL Immature Granulocyte % (Auto) 1 % Neutrophils (%) (Auto) 65 42-75 % Lymphocytes (%) (Auto) 30 12-44 % Monocytes (%) (Auto) 5 0-12 % Eosinophils (%) (Auto) 0 0-10 % Basophils (%) (Auto) 0 0-10 % Neutrophils # (Auto) 5.5 1.8-7.8 10^3/uL Lymphocytes # (Auto) 2.6 1.0-4.0 10^3/uL Monocytes # (Auto) 0.4 0.0-1.0 10^3/uL Eosinophils # (Auto) 0.0 0.0-0.3 10^3/uL Basophils # (Auto) 0.0 0.0-0.1 10^3/uL Immature Granulocyte # (Auto) 0.0 0.0-0.1 10^3/uL Sodium Level 134 L 135-145 MMOL/L Potassium Level 2.9 L 3.6-5.0 MMOL/L Chloride Level 100 98-107 MMOL/L Carbon Dioxide Level 20 L 21-32 MMOL/L Anion Gap 14 5-14 MMOL/L Blood Urea Nitrogen 19 H 7-18 MG/DL Creatinine 1.82 H 0.60-1.30 MG/DL Estimat Glomerular Filtration Rate 36 BUN/Creatinine Ratio 10 Glucose Level 190 H 70-105 MG/DL Calcium Level 10.4 H 8.5-10.1 MG/DL Total Creatine Kinase 88 29-168 U/L Creatine Kinase MB 1.2 <6.6 NG/ML Troponin I 0.076 H <0.028 NG/ML Physical Exam Physical Exam Vital Signs Vital Signs - First Documented 04/20/20 04/20/20 09:17 11:17 Temp 39.7 Pulse 83 Resp 18 B/P (MAP) 201/120 (147) Pulse Ox 100 O2 Delivery Room Air Capillary Refill : Less Than 3 Seconds Height, Weight, BMI Height: 5'3.00" Weight: 142lbs. 9.0oz. 64.424999fl; 25.00 BMI Method:Stated General Appearance: WD/WN, Anxious HEENT: PERRL/EOMI Neck: Full Range of Motion Respiratory: Lungs Clear, Normal Breath Sounds, No Accessory Muscle Use, No Respiratory Distress Cardiovascular: Regular Rate, Rhythm, Systolic Murmur Gastrointestinal: Non Tender, Soft Extremity: Normal Capillary Refill, Normal Range of Motion, Non Tender, No Calf Tenderness, No Pedal Edema Neurologic/Psychiatric: Alert, Oriented x3, No Motor/Sensory Deficits, Normal Mood/Affect Skin: Normal Color, Warm/Dry A/P-Cardiology Admission Diagnosis Unstable angina Malignant hypertension Acute renal insufficiency Elevated troponin level Assessment/Plan Unstable angina, mild elevation in troponin, could be secondary to her malignant hypertension, this is her second admission in the past week, I am planning to proceed with cardiac catheterization evaluate her coronary anatomy Acute on chronic renal insufficiency, monitor renal function started on aggressive hydration Malignant hypertension, multiple hospitalization, was on amlodipine 10 mg daily, Toprol-XL 100 mg daily and hydralazine 25 mg daily which will be restarted, educated on compliance. Left middle cerebral artery aneurysm, presented last week with transient left arm weakness and strokelike symptoms. Had a CTA of the head and neck on April 11, 2020, followed by primary care physician Tobaccoism, patient reported smoking cessation this week Clinical Quality Measures AMI/AHF: ASA po Prior to arrival: RYLAN Lee MD Apr 20, 2020 13:16
--- NOTE | 2020-04-20 13:17 | Cardiac Procedure Note-CS/ASA ---
Pre-Procedure Note Pre-Op Procedure Note H&P Reviewed The H&P was reviewed, patient examined and no changes noted. Date H&P Reviewed: Apr 20, 2020 Time H&P Reviewed: 13:16 Conscious Sedation Pre-Proced Time 13:16 ASA Score 3 For ASA 3 and 4: Consider anesthesia and medical clearance. Also, for patients with a history of failed moderate sedation consider anesthesia. Airway Lungs Heart ASA score ASA 1: a normal healthy patient ASA 2: a patient with a mild systemic disease (mid diabetes, controlled hypertension, obesity x ASA 3: a patient with a severe systemic disease that limits activity (angina, COPD, prior Myocardial infarction) ASA 4: a patient with an incapacitating disease that is a constant threat to life (CHF, renal failure) ASA 5: a moribund patient not expected to survive 24 hrs. (ruptured aneurysm) ASA 6: a declared brain- patient whose organs are being harvested. For emergent operations, add the letter E after the classification Mallampati Classification Grade 3 Sedation Plan Analgesia, Amnesia, Plan communicated to team members, Discussed options with patient/fam, Discussed risks with patient/fam The patient is an appropriate candidate to undergo the planned procedure, sedation, and anesthesia. The patient immediately re-assessed prior to indication. RYLAN PALMER MD Apr 20, 2020 13:17
[2020-04-20] MEDS ORDERED: HEParin 1000 UNIT/ML (10ML VIAL) FOR BOLUS ONE (13:37)
[2020-04-20] MEDS ORDERED: NITRO DRIP 25000 MCG/D5W 250 ML IV ONE (13:37)
[2020-04-20] MEDS ORDERED: CLOPIDOGREL 300 MG (PLAVIX) TABLET PO ONE (13:47)
--- NOTE | 2020-04-20 14:09 | Cardiac Cath Report ---
Cardiac Cath Report Physician (s)/Quantitative Strategy Analyst (s) Physician RYLAN PALMER MD Pre-Procedure Diagnosis Pre-Procedure Diagnosis: non-ST elevation myocardial infarction Post-Procedure Note Procedure Start Date: Apr 20, 2020 Name of Procedure: Left heart catheterization Stent to the right coronary artery Findings/Procedure Note PROCEDURE NOTE: 45-year-old lady admitted with malignant hypertension, chest pain and elevated troponin, brought from the emergency room for cardiac catheterization possible PTCA. After explaining the procedure to the patient, all pros and cons were explained, all questions were answered. The patient signed the consent and then she was placed on the cardiac catheterization laboratory. Groin was prepped SL fashion local anesthesia was used. Sheath placed in the right femoral artery. Ace right and left catheter were used to access the coronary system. Pigtail was used to access the left ventricular cavity. Left ventriculogram was not done Patient was noted to have severe stenosis in the midright coronary artery, given 5000 units of heparin, percutaneous intervention was planned, FFR guided was used and BMW wire advanced and parked distally then primary stenting using Abril 3.0 x 12 mm deployed under 16 paula with excellent results. Patient had coronary spasm after that appointment, responded to intracoronary nitroglycerin At the end of the procedure the sheath was removed. Closure device was used FINDINGS: Hemodynamics LV 129 over 4, end-diastolic pressure of 4 Aorta 140/81 mean of 103 ANATOMY: Left Main is free of obstructive disease Left Anterior Descending is slightly tortuous with no obstructive disease Left Circumflex has no obstructive disease Right Coronory Artery is dominant artery with severe stenosis in the midportion, successful primary stenting using Abril 3.0 x 12 mm deployed under 16 paula to 3.13 mm with excellent results LV Gram was not done, pressure was measured CONCLUSION: 1. Severe stenosis in the midright coronary artery was successful primary stenting using Abril 3 x 12 mm deployed under 16 paula with excellent results 2. Coronary spasm induced by the catheter responded to intracoronary nitroglycerin 3. Otherwise mild coronary artery disease nonobstructive disease 4. Normal left ventricular end-diastolic pressure. DISCUSSION AND RECOMMENDATION: Patient was started on aspirin and Plavix, maximize medical therapy Anesthesia Type: Conscious Sedation Estimated blood loss (mL): 25 ml Contrast Amount: 57 ml Total Radiation Dose: 323 mGy Post-Procedure Diagnosis Post-operative diagnosis: Non-ST elevation myocardial infarction Coronary artery disease Malignant hypertension Acute renal insufficiency RYLAN PALMER MD Apr 20, 2020 14:09
[2020-04-20] MEDS ORDERED: PATIENT MAY USE OWN MEDS, ALL PO SCH (14:15)
[2020-04-20] MEDS: NS IV 1000 ML 1,000 ML IV SCH (14:30)
[2020-04-20] MEDS ORDERED: KCL 20 MEQ TAB (K-DUR) PO NR (14:45)
[2020-04-20] MEDS: ISOSORBIDE MONONITRATE 30 MG (IMDUR) TAB PO SCH (15:11)
[2020-04-20] MEDS ORDERED: hydrALAZINE (APRESOLINE) 25 MG TAB ONE (16:26)
[2020-04-20] MEDS ORDERED: ACETAMINOPHEN 325 MG TABLET PO PRN (19:30)
[2020-04-20] MEDS: hydrALAZINE (APRESOLINE) 25 MG TAB PO SCH (21:39)
[2020-04-21] MEDS: NS IV 1000 ML 1,000 ML IV SCH ×2 (00:12→08:02)
[2020-04-21 03:57] LABS: HEMOGLOBIN 10.9 g/dL (11.5-16.0); MEAN PLATELET VOLUME 10.7 fL (9.0-12.2); WHITE BLOOD COUNT 9.3 10^3/uL (4.3-11.0)
[2020-04-21 04:30] LABS: POTASSIUM 3.9 MMOL/L (3.6-5.0)
[2020-04-21 04:31] LABS: CALCIUM 9.6 MG/DL (8.5-10.1)
[2020-04-21 04:36] LABS: CREATININE SERUM 1.42 MG/DL (0.60-1.30); PHOSPHORUS 3.1 MG/DL (2.3-4.7)
[2020-04-21 04:38] LABS: MAGNESIUM 1.8 MG/DL (1.6-2.4)
[2020-04-21] MEDS: hydrALAZINE (APRESOLINE) 25 MG TAB PO SCH (05:41)
[2020-04-21] MEDS: ISOSORBIDE MONONITRATE 30 MG (IMDUR) TAB PO SCH (08:53)
[2020-04-21] MEDS ORDERED: ISOS30TA82 PO (08:55)
[2020-04-21] MEDS ORDERED: CLOP75TA28 PO (08:55)
--- NOTE | 2020-04-21 08:57 | Discharge Inst-Post CATH ---
Discharge Inst-CATH/EP Problems Reviewed?: Yes Post Cardiac Cath/EP D/C Inst Follow Up/Plan Appointment with Dr. Moreira's office in 2 weeks <b>CARDIAC CATH/EP PROCEDURE DISCHARGE INSTRUCTIONS</b> ACTIVITY * Go Home directly and rest. * Limit activity of the leg (or wrist if it was used) for 7 days including aerobics, swimming, jogging, bicycling, etc. * Restrict stair-climbing for 7 days if possible, if not, climb up with your non-cath leg, then bring together on the same step. * Avoid lifting, pushing, pulling or excessive movement of the affected extremity for 7 days. * Customary sexual activity may be resumed after 2 days-use caution not to use a position that strains or causes pain to the affected extremity. * No driving for 24 hours. * NO SMOKING. * Avoid straining for bowel movements for 7 days. * Gentle walking on level ground is allowed. * Returning to work will depend on the type of procedure and the results. Your doctor will discuss this with you. CALL YOUR DOCTOR FOR ANY OF THE FOLLOWING: *If bleeding from the puncture site occurs- Apply gentle pressure to site with clean cloth and call your doctor or EMS. * If a knot or lump forms under the skin, increases in size, or causes pain. * If bruising appears to be worsening or moving further down your leg instead of disappearing. * Temperature above 101 F. CARE OF YOUR GROIN INCISION; * Bruising or purple discoloration of the skin near the puncture site is common. * You may shower only, no bathtub bathing for 5 days. Be careful to avoid slipping as your leg may feel stiff. * If a closure device was used on your femoral artery, please see the attached guide regarding care of the device and your leg. * Leave dressing on FOR 24 hours. CARE OF YOUR WRIST INCISION; * Bruising or purple discoloration of the skin near the puncture site is common. * You may shower. * DO NOT submerge wrist. * Leave dressing on FOR 24 hours. RYLAN MOREIRA MD Apr 21, 2020 08:57
[2020-04-21] MEDS ORDERED: amLODIPine 10 MG (NORVASC) TAB PO SCH (09:00)
[2020-04-21] MEDS ORDERED: CLOPIDOGREL 75 MG (PLAVIX) TABLET PO SCH (09:00)
[2020-04-21] MEDS ORDERED: ASPIRIN E.C. 81 MG (ECOTRIN) TAB PO SCH (09:00)
[2020-04-21] MEDS ORDERED: meTOprolol SUCCINATE 100 MG (TOPROL XL) TAB PO SCH (09:00)
--- NOTE | 2020-04-21 09:00 | Cardiology Progress Note ---
Subjective Date Seen by Provider: Apr 21, 2020 Time Seen by Provider: 08:57 Subjective/Events-last exam Patient is laying down in bed, feeling better, no new complaint, groin is healing well. Review of Systems General: No Chills, No Night Sweats, No Fatigue, No Malaise, No Appetite, No Other HEENT: No Head Aches, No Visual Changes, No Eye Pain, No Ear Pain, No Dysph mireya, No Sinus Congestion, No Post Nasal Drip, No Sore Throat, No Other Pulmonary: No Dyspnea, No Cough, No Pleuritic Chest Pain, No Other Cardiovascular: No: Chest Pain, Palpitations, Orthopnea, Paroxysmal Noc. Dyspnea, Edema, Lt Headedness, Other Objective-Cardiology Exam Last Set of Vital Signs Vital Signs 04/21/20 04/21/20 03:53 06:00 Temp 36.6 Pulse 71 Resp 12 B/P (MAP) 137/86 (103) Pulse Ox 98 O2 Delivery Room Air Capillary Refill : Less Than 3 Seconds I&O Intake and Output 04/20/20 23:59 Intake Total 170 ml Output Total 500 ml Balance -330 ml Intake Oral 170 ml Output Urine Total 500 ml General: Alert, Oriented X3, Cooperative HEENT: Atraumatic, PERRLA Neck: Supple, No JVD, No Thyromegaly Lungs: Clear to Auscultation, Normal Air Movement Heart: Regular Rate, Normal S1, Normal S2, No Murmurs, Gallops Abdomen: Normal Bowel Sounds, Soft, No Tenderness, No Hepatosplenomegaly, No Masses Extremities: No Clubbing, No Cyanosis, No Edema, Normal Pulses, No Tenderness/Swelling Skin: No Rashes, No Breakdown, No Significant Lesion Neuro: Normal Gait, Normal Speech, Strength at 5/5 X4 Ext, Normal Tone, Sensation Intact Psych/Mental Status: Mental Status NL, Mood NL Results Lab Laboratory Tests 04/20/20 09:37 04/20/20 10:00 04/21/20 03:28 A/P-Cardiology Admission Diagnosis Unstable angina Malignant hypertension Acute renal insufficiency Elevated troponin level Assessment/Plan Non-ST elevation myocardial infarction, coronary artery disease, status post car diac catheterization and stenting of the right coronary artery with excellent results. Coronary artery disease status post stent deployment using Abril 3 x 12 millimeter deployed in the midright coronary artery with excellent results, patient had severe coronary spasm in the right coronary artery responded to multiple doses of intracoronary nitroglycerin, started on isosorbide. Follow-up as an outpatient Acute on chronic renal insufficiency, monitor renal function started on aggressive hydration Malignant hypertension, multiple hospitalization, continue on home medication, increase Toprol to 200 mg daily, continue on amlodipine 10 mg daily, losartan 100 mg daily and add isosorbide 30 mg daily and monitor tolerance and response Left middle cerebral artery aneurysm, presented last week with transient left arm weakness and strokelike symptoms. Had a CTA of the head and neck on 2020, followed by primary care physician Jose, patient reported smoking cessation this week Renal arterial Doppler was ordered to be done today. I recommend follow-up as an outpatient, okay for discharge from cardiology standpoint Clinical Quality Measures AMI/AHF: ASA po Prior to arrival: RYLAN Lee MD Apr 21, 2020 9:00 am
--- NOTE | 2020-04-21 09:39 | Diagnostic Imaging Report ---
INDICATION: Malignant hypertension. TECHNIQUE: Grayscale, color-flow, and duplex Doppler evaluation of both kidneys and renal vasculature was performed. FINDINGS: Right kidney measures 10.6 x 4.0 x 4.4 cm and left kidney measures 9.2 x 4.1 x 5.0 cm. Renal cortical thickness and echogenicity is normal. No calculi or hydronephrosis are seen. Evaluation of the proximal, mid and distal renal arteries was performed. Velocities are unremarkable. No velocity elevation is seen to suggest renal artery stenosis. Waveforms are unremarkable. IMPRESSION: Unremarkable renal ultrasound with renal Doppler. Dictated by: Dictated on workstation # [id number]
--- NOTE | 2020-04-21 10:39 | Discharge Summary ---
Discharge Summary Hospital Course Was the Problem List Reviewed?: Yes Problems/Dx: (1) NSTEMI (non-ST elevated myocardial infarction) (2) Elevated troponin Status: Acute (3) Chest pain Status: Acute Qualifiers: Qualified Codes: I25.9 - Chronic ischemic heart disease, unspecified (4) Malignant hypertension Status: Acute Hospital Course Date of Admission: Admission Diagnosis : Family Physician/Provider: No,Local Physician Date of Discharge: 04/21/20 Discharge Diagnosis: NSTEMI, stent placement during cardiac cath, malignant HTN Hospital Course: Short course after admitted from ER and underwent cath with stent placement due to NSTEMI. HTN more under control with meds and patient was DC. Labs and Pending Lab Test: Laboratory Tests 04/21/20 03:28: White Blood Count 9.3, Red Blood Count 3.78L, Hemoglobin 10.9L, Hematocrit 33L, Mean Corpuscular Volume 86, Mean Corpuscular Hemoglobin 29, Mean Corpuscular Hemoglobin Concent 33, Red Cell Distribution Width 13.4, Platelet Count 379, Mean Platelet Volume 10.7, Sodium Level 138, Potassium Level 3.9, Chloride Level 107, Carbon Dioxide Level 22, Anion Gap 9, Blood Urea Nitrogen 13, Creatinine 1.42H, Estimat Glomerular Filtration Rate 48, BUN/Creatinine Ratio 9, Glucose Level 88, Calcium Level 9.6, Phosphorus Level 3.1, Magnesium Level 1.8, Troponin I 0.239H, Triglycerides Level 115, Cholesterol Level 178, LDL Cholesterol Direct 123, VLDL Cholesterol 23, HDL Cholesterol 39L Home Meds Active Isosorbide Mononitrate ER (Isosorbide Mononitrate) 30 Mg Tab.er.24h 30 Mg PO DAILY Clopidogrel (Clopidogrel Bisulfate) 75 Mg Tablet 75 Mg PO DAILY Prazosin HCl 1 Mg Capsule 1 Mg PO BID 30 Days Hydrochlorothiazide 25 Mg Tablet 25 Mg PO DAILY 30 Days Children's Aspirin (Aspirin) 81 Mg Tab.chew 81 Mg PO DAILY@0900 30 Days Losartan Potassium 100 Mg Tablet 100 Mg PO DAILY 30 Days Amlodipine Besylate 10 Mg Tablet 10 Mg PO DAILY 30 Days Metoprolol Succinate 100 Mg Tab.er.24h 200 Mg PO DAILY 30 Days Hydralazine HCl 25 Mg Tablet 100 Mg PO Q8HR 30 Days Assessment/Pt Instructions [facility] 1 week Discharge Planning: <30 minutes discharge planning Discharge Instructions Discharge Diet: Cardiac Diet Discharge Physical Examination Vital Signs Vital Signs Date Time Temp Pulse Resp B/P (MAP) Pulse Ox O2 Delivery O2 Flow Rate FiO2 04/21/20 08:00 99 Room Air 04/21/20 07:00 74 04/21/20 06:00 12 137/86 (103) 04/21/20 03:53 36.6 General Appearance: No Apparent Distress, WD/WN Allergies: Coded Allergies: lisinopril (Verified Allergy, Unknown, Angioedema, 04/11/20) Discharge Summary Date of Admission Date of Discharge Discharge Date: Apr 21, 2020 Admission Diagnosis Chest pain Malignant HTN Smoker Discharge Diagnosis Plan: Cardiac cath Clinical Quality Measures AMI/AHF: ASA po Prior to arrival: SHAKIRA Irizarry DO Apr 21, 2020 10:39
[2020-04-21 11:00] VITALS: BP 130/86
== END 2020-04-21 11:05 | disposition home or self-care (01) ==
LOC: EDUNIT# 09:17 → ER 09:18 → UNDOADMOB 12:30 → CSD 12:30 → CATH 13:09 → CSD 14:27 → ICU 15:24 → CATH 04-21 11:05
PROVIDERS: ATTEND Internal Medicine Cardiovascular Disease
DX: I21.4 Non-ST elevation (NSTEMI) myocardial infarction (principal); I25.9 Chronic ischemic heart disease, unspecified; I10 Essential (primary) hypertension; R77.8 Other specified abnormalities of plasma proteins; F32.9 Major depressive disorder, single episode, unspecified; I25.10 Atherosclerotic heart disease of native coronary artery without angina pectoris; F41.9 Anxiety disorder, unspecified; N17.9 Acute kidney failure, unspecified; F17.210 Nicotine dependence, cigarettes, uncomplicated; Z79.82 Long term (current) use of aspirin; Z79.899 Other long term (current) drug therapy; Z88.8 Allergy status to other drugs, medicaments and biological substances; Z95.5 Presence of coronary angioplasty implant and graft
CPT/HCPCS: 36415; 71045; 76770; 80048; 80061; 82550; 82553; 83036; 83735; 84100; 84484; 85025; 85027; 87081; 93005; 93458; 93975